=== PATIENT | female | born 1950 | race Caucasian/White ===

== ENCOUNTER 2022-09-16 00:05 | Inpatient (IN) | payer MEDICARE, OTHER ==
[~2022-09-16] VITALS: Ht 160 cm; Wt 108.6 kg
[2022-09-16] MEDS ORDERED: FLUT1DIS8 INH (00:30)
[2022-09-16] MEDS ORDERED: ASPI81CH PO (00:30)
[2022-09-16] MEDS ORDERED: ANORO ELLIPTA1 EACH INH (00:30)
[2022-09-16] MEDS ORDERED: BASAGLAR K100 UNIT/1 SC (00:31)
[2022-09-16] MEDS ORDERED: CEFU250T47 PO (00:32)
[2022-09-16] MEDS ORDERED: BUPRENORPHINE HC2 MG SL (00:32)
[2022-09-16] MEDS ORDERED: BISA5EC PO (00:33)
[2022-09-16] MEDS ORDERED: FISH OIL 1,2001 EAC4 PO (00:34)
[2022-09-16] MEDS ORDERED: FURO40 PO (00:34)
[2022-09-16] MEDS ORDERED: Isosorbide Mono30 MG PO (00:35)
[2022-09-16] MEDS ORDERED: CEPH500 PO (00:36)
[2022-09-16] MEDS ORDERED: LEVOTHYROXINE100 M10 PO (00:37)
[2022-09-16] MEDS ORDERED: LISI20 PO (00:38)
[2022-09-16] MEDS ORDERED: NITR.4SL SL (00:38)
[2022-09-16] MEDS ORDERED: NOVOLOG FL100 UNIT/2 SC (00:39)
[2022-09-16] MEDS ORDERED: PAXLOVID 150-11 EACH (00:39)
[2022-09-16 00:40] VITALS: BP 157/82
[2022-09-16] MEDS ORDERED: K-Dur10 MEQ PO (00:41)
[2022-09-16] MEDS ORDERED: TOPI25 PO (00:41)
[2022-09-16] MEDS ORDERED: ROSU10TA PO (00:41)
[2022-09-16] MEDS ORDERED: GLIP10 PO (00:42)
[2022-09-16 02:52] LABS: BASOPHILS ABSOLUTE AUTO 0.02 K/mm3 (0.00-0.23); BASOPHILS PERCENT AUTO 0 % (0-2); EOSINOPHILS PERCENT AUTO 0 % (0-6); Hematocrit 48.6 % (33.0-51.0); Hemoglobin 15.1 g/dL (11.5-16.0); IMMATURE GRAN ABSOLUTE AUTO 0.11 K/mm3 (0.00-0.10); IMMATURE GRAN PERCENT AUTO 1 % (0-1); LYMPHOCYTES ABSOLUTE AUTO 1.09 K/mm3 (0.84-5.20); LYMPHOCYTES PERCENT AUTO 8 % (21-46); MONOCYTES ABSOLUTE AUTO 0.47 K/mm3 (0.16-1.47); MONOCYTES PERCENT AUTO 3 % (4-13); Mean Corpuscular HGB 27.9 pg (26.0-34.0); Mean Corpuscular HGB Conc 31.1 g/dL (31.5-36.5); Mean Corpuscular Volume 90 fL (80-100); Mean Platelet Volume 10.4 fL (9.1-12.4); NEUTROPHILS ABSOLUTE AUTO 12.49 K/mm3 (1.96-9.15); NEUTROPHILS PERCENT AUTO 88 % (41-73); Platelet Count 157 K/mm3 (150-400); RDW Coefficient Variation 17.1 % (11.7-14.2); RDW Standard Deviation 56.9 fL (35.1-46.3); Red Blood Cell Count 5.42 M/mm3 (3.80-5.20); White Blood Cell Count 14.18 K/mm3 (4.00-11.30)
[2022-09-16 03:04] VITALS: BP 111/88
[2022-09-16 03:41] LABS: Albumin, Blood 2.8 g/dL (3.4-5.0); Albumin/Globulin Ratio 0.7 (0.8-1.8); Bilirubin, Total 0.6 mg/dL (0.1-1.0); Bun/Creatinine Ratio 30.7 (12.0-20.0); Calcium, Blood 8.6 mg/dL (8.5-10.1); Creatinine, Blood 1.01 mg/dL (0.40-1.00); Globulin, Blood 4.2 g/dL (2.2-4.0); Potassium, Blood 4.3 mmol/L (3.5-5.5)
[2022-09-16 04:08] LABS: Base Excess Venous 0.8 mmol/L; Bicarbonate Venous 23.7 mmol/L (24.0-30.0); PCO2 Venous 60.8 mmHg (38-42); pH Blood Venous 7.27 (7.34-7.37)
--- NOTE | 2022-09-16 05:03 | NUR ---
TRANSFER NOTE/SHIFT SUMMARY PATIENT ARRIVED TO UNIT VIA DIRECT ADMIT AT 0015. PATIENT SLID FROM GURNEY TO BED [facility] STAFF ASSIST. PATIENT NOTED TO BE ANXIOUS UPON ARRIVAL AND ATTEMPTING TO REMOVE CPAP MASK WITH RR NOTED TO BE 30-40 AND SPO2 84-86% WHILE TALKING. ORDER PLACED FOR ATIVAN IV. PATIENT NOTED TO HAVE DECREASED ANXIETY AFTER MEDICATION. ABLE TO ANSWER QUESTIONS. BP STABLE. SR ON MONITOR WITH HR 70-80'S. PATIENT PLACED ON CPAP PER RT. REPEAT VBG ORDERED. PT CHANGED TO BIPAP. MD NOTIFIED; NO NEW ORDERS. THIS RN REMOVED ESCAMILLA CATHETER THAT WAS PLACED AT [facility] PER PROTOCOL. VERBAL ORDER RECEIVED FOR NEW ESCAMILLA CATHETER. THIS RN ATTEMPTED TO PLACE NEW CATHETER, PATIENT REFUSED AND KICKED AT STAFF MEMBERS. PUREWICK PLACED FOR MORE ACCURATE I/O'S AT THIS TIME D/T REFUSAL. PATIENT LETHARGIC MOST OF THIS SHIFT SINCE ATIVAN WAS GIVEN. PATIENT ANSWERING QUESTIONS FOR THIS RN. MUMBLED SPEECH NOTED D/T MASK. PATIENT WITH SPO2 >92% ON BIPAP. RR 18-22 AT REST, INCREASING TO 30'S WITH EXERTION/ANXIETY/CONVERSATION. PATIENT VERBALIZED DESIRE TO BE A FULLL CODE TO THIS RN DESPITE COPY OF POLST ON FILE WHICH LISTS DNR/DNI. OTHER VITALS STABLE. REPOSITIONING Q2HRS. PATIENT RECEIVED BED BATH. POWDER APPLIED TO FOLDS D/T REDNESS. LEGS CLEANED AND ELEVATED. BARRIER CREAM APPLIED TO BUTTOCKS/THIGHS WHERE SKIN RED. ISOLATION PRECAUTIONS IN PLACE. BED IN LOWEST POSITION AND CALL LIGHT WITHIN REACH. THIS RN WILL CONTINUE TO MONITOR UNTIL SHIFT CHANGE AT 0700
[2022-09-16 08:43] VITALS: BP 149/119
[2022-09-16 09:44] LABS: Base Excess Venous 0.5 mmol/L; Bicarbonate Venous 24.1 mmol/L (24.0-30.0); PCO2 Venous 50.7 mmHg (38-42); pH Blood Venous 7.33 (7.34-7.37)
--- NOTE | 2022-09-16 10:03 | NUR ---
CARE ASSUMPTION / UPDATE PT A&O TO SELF & SEMI ORIENTED TO LOCATION, DATE & CURRENT SITUATION. PT REPORTING LOCATION "HOSPITAL IN [place]." PT REORIENTED TO HAVING BEEN TRANSFERRED FROM [facility] TO [place]. PT STATING DATE SEPTEMBER 09, 2022. PT REORIENTED TO TODAY'S DATE. PT STATING "I'M HERE BECAUSE I HAVE COVID." PT NOT UNDERSTANDING THE NEED FOR WEARING BIPAP MASK, FREQUENTLY REQUESTING TO REMOVE IT. PT INFORMED OF NEED TO CONTINUE WEARING MASK FOR TIME BEING. REPEAT VBG DRAWN. SPO2 > 92% ON BIPAP: 15/01, FIO2 75%. RR 20s-30s. MONITOR SHOWING SR, HR 80s. PUREWICK DRAINING YELLOW URINE. BLE RED, SWOLLEN & WEEPING, ELEVATED ON PILLOWS. PT 2 PERSON MAX ASSIST FOR REPOSITIONING.
[2022-09-16 11:41] VITALS: BP 132/87
[2022-09-16 16:11] VITALS: BP 153/77
[2022-09-16 16:15] LABS: Source, Urine Foley catheter
[2022-09-16 16:32] LABS: Bilirubin, Urine Neg (Neg); Blood, Urine 5+ (Neg); Glucose Qualitative, Urine Neg (Neg); Ketones, Urine Neg (Neg); Leukocyte Esterase, Urine Neg (Neg); Nitrite, Urine Neg (Neg); Protein, Urine 2+ (Neg); Specific Gravity, Urine 1.015 (1.003-1.022); Urobilinogen, Urine NORM (Normal)
[2022-09-16 17:01] LABS: Appearance, Urine Hazy (Clear); Color, Urine Yellow (P-Yellow)
[2022-09-16 17:03] LABS: Bacteria Many /hpf; Red Blood Cells, Urine TNTC /hpf (0-2); Squamous Epithelial Cells Rare /hpf (Few)
--- NOTE | 2022-09-16 18:07 | NUR ---
ASSUMED CARE OF PT AT 1400 RECEIVED REPORT FROM SYBIL MARTI. PT ON BIPAP SETTINGS 10/5 65% FIO2, SATS KEPT ABOVE 90%, HRR SR 80'S, SBP 150'S, AFEBRILE, RESPIRATIONS SHALLOW AT 22 PT IS ANXIOUS AND TREMOLOUS WHEN AWAKE 0.5MG ATIVAN WAS GIVEN AND ESCAMILLA CATHETER WAS PLACED PT NEEDING STRICT I&O'S PER DR PRESTON PT HAD 1000MLS OUT AFTER ESCAMILLA PLACEMENT UA SENT TO LAB, URINE DARK YELLOW RED IN COLOR. PT UNABLE TO TOLERATE BEING OFF OF THE MASK AT THIS TIME PT IS VERY COARSE AND CRACKLY, IV LASIX NOW Q6 HRS. ECHO WAS ORDERED WELL. PT HAS BEEN REPOSITIONED IN BED Q2HRS. PT IS RESTING AT THIS TIME, CALL LIGHTS IN REACH WILL REPORT TO ONCOMING SHIFT
[2022-09-16 20:35] VITALS: BP 156/71; BP 165/71
[2022-09-17] VITALS (44 sets, daily range): BP systolic 76–174; BP diastolic 43–86
[2022-09-17 05:03] LABS: Mean Corpuscular HGB 28.1 pg (26.0-34.0); Mean Corpuscular HGB Conc 30.1 g/dL (31.5-36.5); Mean Corpuscular Volume 93 fL (80-100); Mean Platelet Volume 10.3 fL (9.1-12.4); NRBC ABSOLUTE 0.02 K/mm3 (0.00-0.02); NRBC Auto 0.1 /100 WBC (0.0-0.2); Platelet Count 193 K/mm3 (150-400); RDW Standard Deviation 58.9 fL (35.1-46.3); Red Blood Cell Count 6.04 M/mm3 (3.80-5.20); White Blood Cell Count 23.87 K/mm3 (4.00-11.30)
[2022-09-17 05:04] LABS: Hematocrit 56.4 % (33.0-51.0)
--- NOTE | 2022-09-17 05:09 | NUR ---
SHIFT SUMMARY PT OPENS EYES TO PAINFUL STIMULI, MUMBLES WORDS BUT DOES NOT FORM SENTENCES OR ANSWER QUESTIONS. BP ELEVATED WITH SBP 140-150's, SINUS 80's. PT REQUIRED INCREASE IN BIPAP SETTINGS TO 16/8 85% FiO2 TO MAINTAIN SpO2> 90%. ORAL CARE PROVIDED WITH SUCTION. ESCAMILLA CATHETER IN PLACE, PATENT, DRAINIG TO GRAVITY. Q2 TURNS PROVIDED. NO OTHER EVENTS, WILL REPORT TO ONCOMING RN.
[2022-09-17 05:47] LABS: BAND PERCENT MAN 12 % (0-8); BASOPHILS PERCENT MAN 0 % (0-2); EOSINOPHILS PERCENT MAN 0 % (0-6); LYMPHOCYTES ABSOLUTE MAN 0.71 K/mm3 (0.84-5.20); LYMPHOCYTES PERCENT MAN 3 % (21-46); MONOCYTES ABSOLUTE MAN 1.43 K/mm3 (0.16-1.47); MONOCYTES PERCENT MAN 6 % (4-13); NEUTROPHILS ABSOLUTE MAN 21.72 K/mm3 (1.96-9.15); SEG NEUTROPHILS PERCENT MAN 79 % (41-73); TOTAL CELLS COUNTED 100
[2022-09-17 05:58] LABS: Albumin, Blood 2.7 g/dL (3.4-5.0); Albumin/Globulin Ratio 0.6 (0.8-1.8); Bilirubin, Total 0.7 mg/dL (0.1-1.0); Bun/Creatinine Ratio 44.6 (12.0-20.0); Calcium, Blood 8.9 mg/dL (8.5-10.1); Creatinine, Blood 0.72 mg/dL (0.40-1.00); Globulin, Blood 4.8 g/dL (2.2-4.0); Phosphorus, Blood 4.5 mg/dL (2.5-4.9); Potassium, Blood 4.7 mmol/L (3.5-5.5); Total Protein, Blood 7.5 g/dL (6.4-8.2)
--- NOTE | 2022-09-17 08:39 | NUR ---
AM NOTES: PT REMAIN LETHARGIC AND SOMNOLENT ON BIPAP CAN ONLY RESPOND TO PAINFUL STIMULI OR WHEN TOUCHED OR MOVED, MUMBLES AND UNABLE TO KEEP EYES OPEN. BIPAP SETTINGS 16/8 85% FIO2 STILL UNABLE TO TOLERATE BEING OFF OF IT, REMAINS NPO. SBP 100-130'S, RR 30'S, HRR SR 80'S, AFEBRILE. PT REPOSITIONED Q2HRS, ORAL CARE PROVIDED, LEGS RED AND SWOLLEN WAS ELEVATED ON PILLOWS, ESCAMILLA CATHETER DRAINING YELLOW URINE VIA GRAVITY, ON DIURETICS. BREATHING TX PER RT. WILL CONTINUE TO MONITOR
[2022-09-17 12:47] LABS: Base Excess Venous 7.5 mmol/L; Bicarbonate Venous 28.2 mmol/L (24.0-30.0); PCO2 Venous 73.4 mmHg (38-42); PO2 Venous 177 mmHg (38-42)
[2022-09-17 12:48] LABS: pH Blood Venous 7.28 (7.34-7.37)
[2022-09-17 13:13] LABS: PCO2 Arterial 78.8 mmHg (35-45); PO2 Arterial 79.8 mmHg (80-100); pH Blood Arterial 7.26 (7.35-7.45)
--- NOTE | 2022-09-17 14:38 | NUR ---
PT TRANSFERRED TO ICU REPORT GIVEN TO RAHUL MARTI. ORDER TO TRANSFER PT FROM DR DAWN PER ABG/VBG RESULTS AND WORSENING RESPIRATORY STATUS AND ALSO PER RT'S RECOMMENDATION. ALL BELONGINGS SENT WITH THE PT, PROVIDER MADE AWARE, CALLED [facility]YSTAL CAREGIVER WAS GIVEN AN UPDATE REGARDING PT ADN ALSO MADE AWARE OF THE TRANSFER.
--- NOTE | 2022-09-17 14:46 | NUR ---
PT TRANSFERED FROM PCU TO ICU 4. ON BIPAP 18/8 FIO2 85%. PT IS TRYING TO TALK BUT UNABLE TO UNDERSTAND. TREMULOUS AND PULLING AT BIPAP MASK. RESP RATE IN THE 50'S. BP ELEVATED BUT UNSURE IF IT IS ACCURATE D/T PT CONSTANTLY MOVING ARMS AND TREMORS. CALLED DR. DAWN TO NOTIFY HIM OF ARRIVAL TO ICU. PRECEDEX GTT ORDERED.
[2022-09-17 17:54] LABS: PO2 Arterial 67.7 mmHg (80-100); pH Blood Arterial 7.27 (7.35-7.45)
[2022-09-17 17:55] LABS: PCO2 Arterial 82.1 mmHg (35-45)
--- NOTE | 2022-09-17 18:48 | NUR ---
SUMMARY PT ON BIPAP. UNABLE TO UNDERSTAND ANY CONVERSATION. PT WAS CONSTANTLY PULLING AT LINES AND BIPAP. PRECEDEX STARTED AND IS NOW RESTING QUIETLY ON BIPAP. REPEAT ABG DONE AND CRITICAL VALUES CALLED TO DR. DAWN. DR. DAWN WILL BE IN TO SEE PT THIS EVENING. GOOD URINE OUTPUT AFTER LASIX. CAREGIVER AAMIR HAS BEEN UPDATED ON STATUS AND A SON FROM [place] IS ON HIS WAY UP TO SEE PT.
--- NOTE | 2022-09-17 19:45 | NUR ---
ASSUMED CARE OF PT AT 1915 BEDSIDE REPORT RECEIVED FROM FIGUEROA KAY. PT IS CURRENTLY ON PRECEDEX AND 0.4 AND NOT RESPONDING TO VERBAL STIMULI. ON BIPAP, RECENT ABG'S WORSENING DESPITE INCREASED PRESSURE SETTINGS ON BIPAP. DR. DAWN NOTIFIED. PT HAS BEEN NPO SINCE ADMIT TO ICU DUE TO SOMNOLENCE AND CONFUSION. ESCAMILLA PATENT AND DRAINING CLEAR YELLOW URINE. BLE REDENNED WITH THICKENED SKIN. 2+ PITTING EDEMA NOTED TO BILAT LOWER EXTREMETIES. PIV IN RIGHT AND LEFT WRIST, LEFT WRIST WITH GOOD BLOOD RETURN, BOTH FLUSH WELL. NO FAMILY AT BEDSIDE. PT HAS POLST STATING DNR BUT VERBALLY TOLD EMS SHE WISHES TO BE A FULL CODE. RN TO CONTINUE TO MONITOR
--- NOTE | 2022-09-17 21:47 | NUR ---
DR. DAWN TO BEDSIDE TO EVALUATE PT DECISION MADE BY MD TO INTUBATE PT. THIS RN, RT AND ARSON AND BOMB INVESTIGATOR AT BEDSIDE DURING INTUBATION. 4 MG VERSED AND 40 MG PROPOFOL GIVEN IMMEDIATELY PRIOR TO INTUBATION, PT INTUBATED WITH 7.5 TUBE, TOLERATED WELL, PT MAINTAINED O2 SAT > 92%. IMMEDIATELY FOLLOWING INTUBATION, PT BP LOW REQUIRING 100MCG PHENYLEPHRINE IV. BP RESOLVED QUICKLY WITH NO FURTHER INTERVENTION. RIGHT SC QUAD LUMEN CATHETHER PLACED BY DR. DAWN. OGT PLACED BY THIS RN. CXR DONE, DR. DAWN CONFIRMS CORRECT PLACEMENT OF ETT, CENTRAL LINE AND OGT. OGT PLACED TO LIS. BILAT WRIST RESTRAINTS PLACED TO PROTECT LINES/TUBES. DR. DAWN PROVIDED UPDATE TO CAREGIVER VIA PHONE. RN TO CONTINUE TO MONITOR
[2022-09-17 22:31] LABS: PCO2 Arterial 53.6 mmHg (35-45); PO2 Arterial 157 mmHg (80-100); pH Blood Arterial 7.44 (7.35-7.45)
[2022-09-18] VITALS (84 sets, daily range): BP systolic 102–164; BP diastolic 53–113
--- NOTE | 2022-09-18 05:12 | NUR ---
END OF SHIFT SUMMARY NEURO: SEDATED. MOVES HANDS AND HEAD WHEN STIMULATED. DOES NOT OPEN EYES SPONTANEOUSLY. CARDIAC: SR, BP 104/57 MAP 72 RESP: VENT AC/VC 20/400/10/70%. LUNGS COARSE, TIGHT. MODERATE AMOUNT OF MARTIN SECRETIONS AFTER INTUBATION, MINIMAL SECRETIONS FOR THE REMAINDER OF THE SHIFT. ORAL CARE COMPLETED ORDERED. GI: OGT TO LIS UNTIL 0400 THEN CLAMPED. GREEN OUTPUT IN TUBING, NOT MEASURABLE. : ESCAMILLA TO GRAVITY, PATENT AND DRAINING YELLOW URINE. 600ML OUT. SKIN: MULTIPLE AREAS OF EXCORIATION AND REDNESS UNDER SKIN FOLDS. CLEANSED AND KEPT DRY ABLE. PICTURES IN CHART. IV: PIV X2, SL. RSC QUAD LUMEN CATHETER. CONTINUOUS CVP READING 8-10. NO FAMILY AT BEDSIDE. SON REPORTEDLY ARRIVING FROM [place] TODAY.
[2022-09-18 05:23] LABS: BASOPHILS ABSOLUTE AUTO 0.04 K/mm3 (0.00-0.23); BASOPHILS PERCENT AUTO 0 % (0-2); EOSINOPHILS PERCENT AUTO 0 % (0-6); Hematocrit 49.8 % (33.0-51.0); Hemoglobin 15.3 g/dL (11.5-16.0); IMMATURE GRAN ABSOLUTE AUTO 0.14 K/mm3 (0.00-0.10); IMMATURE GRAN PERCENT AUTO 1 % (0-1); LYMPHOCYTES ABSOLUTE AUTO 0.72 K/mm3 (0.84-5.20); LYMPHOCYTES PERCENT AUTO 6 % (21-46); MONOCYTES ABSOLUTE AUTO 0.58 K/mm3 (0.16-1.47); MONOCYTES PERCENT AUTO 5 % (4-13); Mean Corpuscular HGB Conc 30.7 g/dL (31.5-36.5); Mean Corpuscular Volume 91 fL (80-100); Mean Platelet Volume 10.3 fL (9.1-12.4); NEUTROPHILS ABSOLUTE AUTO 10.81 K/mm3 (1.96-9.15); NEUTROPHILS PERCENT AUTO 88 % (41-73); NRBC ABSOLUTE 0.02 K/mm3 (0.00-0.02); NRBC Auto 0.2 /100 WBC (0.0-0.2); Platelet Count 165 K/mm3 (150-400); RDW Coefficient Variation 16.6 % (11.7-14.2); RDW Standard Deviation 55.7 fL (35.1-46.3); Red Blood Cell Count 5.46 M/mm3 (3.80-5.20); White Blood Cell Count 12.29 K/mm3 (4.00-11.30)
[2022-09-18 05:45] LABS: Albumin, Blood 2.1 g/dL (3.4-5.0); Albumin/Globulin Ratio 0.5 (0.8-1.8); Bilirubin, Total 0.8 mg/dL (0.1-1.0); Bun/Creatinine Ratio 68.7 (12.0-20.0); Calcium, Blood 8.5 mg/dL (8.5-10.1); Creatinine, Blood 0.66 mg/dL (0.40-1.00); Globulin, Blood 4.1 g/dL (2.2-4.0); Potassium, Blood 4.2 mmol/L (3.5-5.5); Total Protein, Blood 6.2 g/dL (6.4-8.2)
--- NOTE | 2022-09-18 08:38 | NUR ---
PT'S CARE ASSUMED AT 0700, ON VENTILATOR AC/VC 20/400/10/70% FIO2. PT IS NOT RESPONDING TO VERBAL STIMULI, PROPOFOL DECREASED TO 25MCG/KG. ANTIBIOTIC HUNG WITH NS TKO TO CENTRAL LINE. PIV X 2 ASSESSED, RIGHT WRIST REMOVED FOR LEAKING LEFT WRIST FLUSHED AND INTACT. ABDOMEN SOFT, OGT IN PLACE TO LIS WITH GREEN RETURN. ORAL CARE COMPLETED, ESCAMILLA CARE COMPLETED, PT LIFTED FOR POSITION CHANGE, PT REACTED TO POSITION CHANGE WITH SOME REACHING AND COUGHING. LEGS ARE RED AND FLAKEY, EVIDENCE OF DECREASED SWELLING BY THE WRINKLES THAT ARE PRESENT IN FEET AND CALVES. PULSES ARE PALPABLE ON DORSUM BILAT.
[2022-09-18 11:56] LABS: Vancomycin, Trough 19.9 ug/mL (5.0-10.0)
--- NOTE | 2022-09-18 12:53 | NUR ---
ON PROPOFOL 20MCG/KG PATIENT IS MORE AGITATED AND RESTLESS. SHE ISN'T UNDER- STANDING VERBAL CUES AND REDIRECTION. HER PROPOFOL IS BACK TO 25MCG/KG. HER SON DID PHONE, HE IS "STUCK" AT THE TRAIN STATION IN [facility] AND WILL NOT ARRIVE UNTIL TOMORROW. CAREGIVER CALLED THIS AM AND STATED THAT THE PATIENT LIVES WITH HER IN A MOBILE HOME AND HAS BEEN ONLY MAKING ABOUT 12 STEPS FROM LIVING ROOM TO KITCHEN AND RETURNING FOR THE LAST SEVERAL WEEKS. INFORMATION GIVEN TO MARKETING INTELLIGENCE MANAGER.
--- NOTE | 2022-09-18 13:41 | NUR ---
ECHO BEING PERFORMED, PT TRANSITIONED BACK TO LEFT SIDE DOWN FOR TEST. TUBE FEEDING OF VHP @ 35ML/HR INITIATED PER ORDERS. PROPOFOL @ 25MCG/KG WITH GOOD LIGHT SEDATION.
--- NOTE | 2022-09-18 19:24 | NUR ---
DIEUDONNE REMAINED ON THE VENTILATOR WITH NO CHANGES. FAMILY HAS BEEN UPDATED T/O THE DAY. SHE TOLERATES BEING AT 25MCG/KG OF PROPOFOL THE BEST, WITH LIGHT SEDATION. PT HAS BEEN ROTATED Q2HR WITH LIFT, TUBE FEEDINGS BEGAN WITH VITAL HIGH PROTEIN @ 35ML/HR. ESCAMILLA REMAINS IN PLACE WITH ANTHONY RETURN. ETT SUCTION RETURNED MARTIN/RED TINGED X1.
--- NOTE | 2022-09-18 22:04 | NUR ---
ASSUMED CARE OF PT AT 1915 BEDSIDE REPORT RECIEVED FROM FIGUEROA QUIROZ. PT IS SEDATED AND ON A VENTILATOR. SR, BP SLIGHTLY ELEVATED, PT HAS A HISTORY OF HYPERTENSION. OGT WITH TF INFUSING AT GOAL. ESCAMILLA PATENT AND DRAINING YELLOW URINE. SKIN IS UNCHANGED. PHOTOS IN CHART ARE CURRENT. RIGHT SC QUAD LUMEN CATH INFUSING. NO FAMILY AT BEDSIDE. SON EXPECTED TO ARRIVE TOMORROW. RN TO CONTINUE TO MONITOR
[2022-09-19] VITALS (63 sets, daily range): BP systolic 126–174; BP diastolic 50–100
[2022-09-19 05:56] LABS: BASOPHILS ABSOLUTE AUTO 0.04 K/mm3 (0.00-0.23); BASOPHILS PERCENT AUTO 1 % (0-2); EOSINOPHILS PERCENT AUTO 0 % (0-6); Hematocrit 44.3 % (33.0-51.0); Hemoglobin 13.6 g/dL (11.5-16.0); IMMATURE GRAN ABSOLUTE AUTO 0.31 K/mm3 (0.00-0.10); IMMATURE GRAN PERCENT AUTO 4 % (0-1); LYMPHOCYTES ABSOLUTE AUTO 0.37 K/mm3 (0.84-5.20); LYMPHOCYTES PERCENT AUTO 5 % (21-46); MONOCYTES ABSOLUTE AUTO 0.56 K/mm3 (0.16-1.47); MONOCYTES PERCENT AUTO 8 % (4-13); Mean Corpuscular HGB 27.8 pg (26.0-34.0); Mean Corpuscular HGB Conc 30.7 g/dL (31.5-36.5); Mean Corpuscular Volume 90 fL (80-100); Mean Platelet Volume 10.2 fL (9.1-12.4); NEUTROPHILS PERCENT AUTO 82 % (41-73); Platelet Count 161 K/mm3 (150-400); RDW Coefficient Variation 16.7 % (11.7-14.2); RDW Standard Deviation 55.8 fL (35.1-46.3); White Blood Cell Count 7.28 K/mm3 (4.00-11.30)
[2022-09-19 06:48] LABS: Albumin, Blood 1.8 g/dL (3.4-5.0); Anion Gap 4 mmol/L (6-16); Blood Urea Nitrogen 45 mg/dL (8-24); Bun/Creatinine Ratio 86.5 (12.0-20.0); CO2, Blood 34 mmol/L (21-32); Calcium, Blood 7.8 mg/dL (8.5-10.1); Chloride, Blood 110 mmol/L (98-108); Creatinine, Blood 0.52 mg/dL (0.40-1.00); Glomerular Filtration Rate 97 (60-); Glucose, Blood 403 mg/dL (70-99); Magnesium, Blood 2.1 mg/dL (1.6-2.4); Phosphorus, Blood 1.3 mg/dL (2.5-4.9); Potassium, Blood 3.6 mmol/L (3.5-5.5); Sodium, Blood 148 mmol/L (136-145)
--- NOTE | 2022-09-19 06:50 | NUR ---
END OF SHIFT SUMMARY SEDATED, MOVES LEFT HAND TO FACE WHEN UNRESTRAINED AND STIMULATED. TITRATED PROPOFOL ACCORDINGLY. SR, BP ELEVATED WHEN TURNING, RETURNS TO 130'S WHEN RESTING. LUNGS COARSE THROUGHOUT, DIMISHED BASES, MINIMAL SUCTIONED FROM ETT, VENT AC.CV 20/400/10/50%. OGT INFUSING AT GOAL, TOLERATED WELL. ESCAMILLA WITH 800ML ANTHONY UO. SKIN UNCHANGED. BATHED AND CREAM APPLIED TO AREAS OF EXCORIATION. CENTRAL LINE TO RIGHT SC, INFUSING. NO FAMILY AT BEDSIDE.
--- NOTE | 2022-09-19 08:10 | NUR ---
ASSUMED CARE: REPORT RECEIVED FROM ANTHONY Dominguez RN. ASSUMED CARE OF THIS PT AT APPROX 0700. ON ASSESSMENT, THE PT IS SEDATED W/ PROPOFOL & VENTILATED. SHE IS OVERALL RESTING QUIETLY, BECOMES AGITATED W/ CARE MEASURES AT TIMES, PULLING AGAINST BILAT SOFT WRIST RESTRAINTS. LS COARSE, DIM IN BASES. VENT SETTINGS: AC/VC 20/400/10/50% W/ O2 SATS > 92%. MONITOR SHOWS SB-SR W/ HR 50-60s, BP STABLE. OGT IN PLACE W/ TUBE FEEDS INFUSING AT GOAL RATE OF 35 ML/HR W/ 30 ML H2O FLUSH Q4H, NO S/SX INTOLERANCE NOTED. ESCAMILLA PATENT/ DRAINING YELLOW URINE. SKIN CONDITION OVERALL FRAGILE, NUMEROUS AREAS OF DRY SCALING SKIN & ECCHYMOSIS. FOLDS OF ABD, BREASTS & BUTTOCKS W/ OPEN AREAS NOTED, CLEANSED & DRIED. Q2H REPOSITIONING TO MAINTAIN SKIN INTEGRITY. WILL CONTINUE TO MONITOR & UPDATE NEEDED.
--- NOTE | 2022-09-19 10:30 | NUR ---
DR QUEZADA: DURING ROUNDS THIS AM, IT IS DISCUSSED THAT THE PT's CBGs ARE CONTINUING TO TREND HIGH. Q6H CORRECTION SCALE COVERAGE INCREASED TO HIGH. KPHOS ORDERED TO CORRECT LOW PHOS & BORDERLINE POTASSIUM LEVELS. KHOA, INSURANCE CLAIM APPROVER, SUSPECTS REFEEDING SYNDROME & HAS ORDERED FOLLOW-UP LABS. SODIUM ALSO TRENDING HIGH ON AM LABS & FREE WATER FLUSH W/ TUBE FEEDINGS HAS BEEN INCREASED TO 120 ML Q4H. NO OTHER CHANGES AT THIS TIME.
[2022-09-19 16:23] LABS: Vancomycin, Trough 8.4 ug/mL (5.0-10.0)
--- NOTE | 2022-09-19 17:51 | NUR ---
SHIFT SUMMARY: NO ACUTE CHANGES SINCE PRIOR UPDATES. THE PT REMAINS SEDATED W/ PROPOFOL & VENTILATED. SHE CONTINUES TO MOVE EXTREMITIES & WITHDRAW FROM NOXIOUS STIMULI. NO PURPOSEFUL MOVEMENT OR FOLLOWING DIRECTIONS NOTED. LS COARSE, DIM IN BASES. VENT SETTINGS: AC/VC 20/400/8/40% W/ O2 SATS > 92%. PRODUCTIVE COUGH W/ THICK BLOOD TINGED SPUTUM SUCTIONED THROUGH ETT. MONITOR SHOWS SB-SR W/ HR 40-60s, BP STABLE. OGT IN PLACE W/ TUBE FEEDINGS INFUSING AT GOAL RATE, NO S/SX INTOLERANCE NOTED, NO BM THIS SHIFT. ESCAMILLA PATENT/ DRAINING YELLOW URINE. SKIN CONDITION OVERALL FRAGILE, DRY & FLAKING IN SOME AREAS. SCATTERED ECCHYMOSIS NOTED T/O & FOLDS OF ABD/ BREASTS HAVE REDENNED, BLEEDING AREAS. THIS RN HAS CONTACTED DR QUEZADA FOR PT's PERSISTANTLY ELEVATED GLUCOSE LEVELS DESPITE INCREASING TO HIGH CORRECTION SCALE COVERAGE Q6H. CBG CHECKS & HCS COVERAGE INCREASED TO Q4H & ORDERS FOR NPH ALSO PLACED. WILL CONTINUE TO MONITOR & UPDATE NEEDED.
[2022-09-19 21:27] LABS: Glucose, Blood 547 mg/dL (70-99)
--- NOTE | 2022-09-19 23:04 | NUR ---
ASSUMED CARE OF PT AT 1915 BEDSIDE REPORT RECEIVED FROM FIGUEROA CHAMBERS. PT APPEARS TO BE COMFORTABLY. SEDATED WITH PROPOFOL. ON VENT AC/VC 20/400/8/40%. LUNGS COARSE. ETT SECRETIONS PINK/MARTIN, THICK, SMALL AMOUNT. TITRATED O2 UP TO 50% AFTER SUSTAINED DESATURATION TO 88% DESPITE SUCTIONING AND REPOSITIONING. O2 SATS IMPROVED TO >94%. OGT WITH VITAL HP INFUSING AT 35ML/HR (GOAL). PT TOLERATING WELL. FEEDING SET CHANGED. ESCAMILLA PATENT AND DRAINING ANTHONY URINE. SKIN REMAINS UNCHANGED WITH MULTIPLE AREAS OF EXCORIATION AND SHEARING. MEPILEX TO COCCYX AND LEFT ELBOW. STERI STRIPS PRESENT UNDER LEFT ELBOW MEPILEX. REPOSITIONED EVERY 2 HOURS TO MAINTAIN SKIN INTEGRITY. CENTRAL LINE TO RIGHT SC. DRESSING C/D/I. ALL PORTS FLUSHED/2 LINES INFUSING. CVP 10-13. SON ABLE TO VISIT THIS SHIFT AFTER TRAVELING FROM [place]. BRIEFLY UPDATE ON POC AND EDUCATED ON CONTACT PRECAUTIONS. HE WILL BE STAYING AT THE [address] IN [place]. RN TO CONTINUE TO MONITOR.
[2022-09-20] VITALS (45 sets, daily range): BP systolic 123–180; BP diastolic 55–127
[2022-09-20 04:33] LABS: Hematocrit 47.6 % (33.0-51.0); Hemoglobin 14.9 g/dL (11.5-16.0); Mean Corpuscular HGB 28.2 pg (26.0-34.0); Mean Corpuscular HGB Conc 31.3 g/dL (31.5-36.5); Mean Corpuscular Volume 90 fL (80-100); Mean Platelet Volume 10.5 fL (9.1-12.4); Platelet Count 165 K/mm3 (150-400); RDW Coefficient Variation 16.5 % (11.7-14.2); RDW Standard Deviation 55.2 fL (35.1-46.3); Red Blood Cell Count 5.28 M/mm3 (3.80-5.20); White Blood Cell Count 5.34 K/mm3 (4.00-11.30)
[2022-09-20 04:51] LABS: Bun/Creatinine Ratio 100.2 (12.0-20.0); Calcium, Blood 8.1 mg/dL (8.5-10.1); Creatinine, Blood 0.43 mg/dL (0.40-1.00); Magnesium, Blood 2.4 mg/dL (1.6-2.4); Phosphorus, Blood 1.8 mg/dL (2.5-4.9)
[2022-09-20 04:55] LABS: BAND PERCENT MAN 1 % (0-8); BASOPHILS PERCENT MAN 0 % (0-2); EOSINOPHILS PERCENT MAN 0 % (0-6); LYMPHOCYTES ABSOLUTE MAN 0.37 K/mm3 (0.84-5.20); LYMPHOCYTES PERCENT MAN 7 % (21-46); METAMYELOCYTE ABSOLUTE MAN 0.05 K/mm3 (0.00-0.00); METAMYELOCYTE PERCENT MAN 1 % (0-0); MONOCYTES ABSOLUTE MAN 0.37 K/mm3 (0.16-1.47); MONOCYTES PERCENT MAN 7 % (4-13); MYELOCYTE ABSOLUTE MAN 0.05 K/mm3 (0.00-0.00); MYELOCYTE PERCENT MAN 1 % (0-0); NEUTROPHILS ABSOLUTE MAN 4.48 K/mm3 (1.96-9.15); SEG NEUTROPHILS PERCENT MAN 83 % (41-73); TOTAL CELLS COUNTED 100
--- NOTE | 2022-09-20 05:59 | NUR ---
SHIFT SUMMARY PT REMAINS SEDATED, LOCALIZES PAIN. SB 45-55, BP STABLE WITH SBP 120-135. LUNGS COARSE, OCCAS COUGH, ETT SECRETIONS MARTIN/PINK/RED WITH SUCTIONING. OGT WITH VITAL HP INFUSING AT 35 ML/HR (GOAL). ESCAMILLA TO GRAVITY, 1 LITER UO. SKIN UNCHANGED. BED BATH COMPLETED, MEPILEX TO COCCYX AND LEFT ELBOW. CENTRAL LINE RIGHT SC, INFUSING, CVP TRANSDUCING 8-13. BLOOD GLUCOSE MONITORED EVERY 4 HOURS. CONSISTENTLY DECREASING AFTER LONG ACTING AND HIGH S/S COVERAGE. RN TO CONTINUE TO MONITOR.
--- NOTE | 2022-09-20 18:28 | NUR ---
Shift summary. Assumed care at 0700. Report received from barbara MARTI. Pt sedated and ventilated via ETT. Vent settings: AC/VC 16/400/8/45%, Fi02 titrated up to 50% during shift. Pt sats drop into high 80s when turning or laying bed flat, pt takes several minutes to recver sats into low 90s on current settings. OG tube in place, TF at goal rate, 35 ml/hr. R/subclavian central line in place, dressing changed today. Propofol infusing at 20 mcg/kg/min initally, titrated down to 15 mcg/kg/min at 1430. NS TKO. Johansen catheter in place, good output, see I&O. No acute events this shift, see assessment/chart for further details. Will continue to monitor and report off to barbara MARTI.
[2022-09-21] VITALS (76 sets, daily range): BP systolic 91–228; BP diastolic 44–104
[2022-09-21 04:12] LABS: PO2 Arterial 70.4 mmHg (80-100); pH Blood Arterial 7.44 (7.35-7.45)
[2022-09-21 04:12] LABS: Hematocrit 52.5 % (33.0-51.0); Hemoglobin 16.6 g/dL (11.5-16.0); Mean Corpuscular HGB 27.6 pg (26.0-34.0); Mean Corpuscular HGB Conc 31.6 g/dL (31.5-36.5); Mean Corpuscular Volume 87 fL (80-100); Mean Platelet Volume 10.3 fL (9.1-12.4); Platelet Count 189 K/mm3 (150-400); RDW Standard Deviation 52.7 fL (35.1-46.3); Red Blood Cell Count 6.01 M/mm3 (3.80-5.20); White Blood Cell Count 8.85 K/mm3 (4.00-11.30)
[2022-09-21 04:32] LABS: Albumin, Blood 2.1 g/dL (3.4-5.0); Anion Gap 0 mmol/L (6-16); Blood Urea Nitrogen 43 mg/dL (8-24); Bun/Creatinine Ratio 92.3 (12.0-20.0); CO2, Blood 37 mmol/L (21-32); Calcium, Blood 8.2 mg/dL (8.5-10.1); Chloride, Blood 108 mmol/L (98-108); Creatinine, Blood 0.47 mg/dL (0.40-1.00); Glomerular Filtration Rate 100 (60-); Glucose, Blood 371 mg/dL (70-99); Phosphorus, Blood 1.9 mg/dL (2.5-4.9); Potassium, Blood 4.4 mmol/L (3.5-5.5); Sodium, Blood 145 mmol/L (136-145)
--- NOTE | 2022-09-21 05:45 | NUR ---
SHIFT SUMMARY: Pt stable overnight. Vent settings stayed the same. Sats have been around 90-92%. Small amount of bloody sputum noted from ETT. Hypertensive at times with BPs up to 190s. Order received for hydralazine Q6 for SBP>160. Given one dose, SBP still in 160s. Propofol increased to 25mcg/kg/min overnight due to ventilator asynchrony and some restlessness. She is not following commands. CHG bath done and gown/ linens changed. CBGs still in the 300s.
[2022-09-21 06:17] LABS: BAND PERCENT MAN 4 % (0-8); BASOPHILS PERCENT MAN 0 % (0-2); EOSINOPHILS PERCENT MAN 0 % (0-6); LYMPHOCYTES ABSOLUTE MAN 0.26 K/mm3 (0.84-5.20); LYMPHOCYTES PERCENT MAN 3 % (21-46); METAMYELOCYTE ABSOLUTE MAN 0.08 K/mm3 (0.00-0.00); METAMYELOCYTE PERCENT MAN 1 % (0-0); MONOCYTES ABSOLUTE MAN 0.44 K/mm3 (0.16-1.47); MONOCYTES PERCENT MAN 5 % (4-13); MYELOCYTE ABSOLUTE MAN 0.17 K/mm3 (0.00-0.00); MYELOCYTE PERCENT MAN 2 % (0-0); NEUTROPHILS ABSOLUTE MAN 7.87 K/mm3 (1.96-9.15); SEG NEUTROPHILS PERCENT MAN 85 % (41-73); TOTAL CELLS COUNTED 100
--- NOTE | 2022-09-21 08:34 | NUR ---
AM NOTE.... ASSUMED CARE OF PT AT 0700 PT IS INTUBATED AND SEDATED WITH PROPOFOL AT 25MCG/KG. RAAS SCORE OF -2. VENT SETTINGS ARE AC/VC:20/400/8/60 WITH O2 SATS >95%. L/S SCATTERED WHEEZES AND COARSE T/O DIM IN THE BASES. SHE IS IN SR IN THE 90'S. BP STABLE WITH MAPS >65. CVP 9-10. 1+ EDEMA NOTED TO HER BLE AND BUE. OG TUBE IS RUNNING TUBE FEEDS PER ORDER AT 35MLS/HR. BT PRESENT AND HYPOACTIVE, ABD SOFT TO PALPATION. BOWEL CARE STARTED PER ORDERS D/T NO BM SINCE 09/15. PT'S ESCAMILLA IS PATENT AND DRAINING TO GRAVITY. CALL LIGHT IN REACH WILL CONTINUE TO MONITOR.
[2022-09-21 15:46] LABS: Hematocrit 48.1 % (33.0-51.0); Hemoglobin 15.4 g/dL (11.5-16.0); Mean Corpuscular HGB 28.1 pg (26.0-34.0); Mean Corpuscular Volume 88 fL (80-100); Platelet Count 173 K/mm3 (150-400); RDW Coefficient Variation 16.9 % (11.7-14.2); RDW Standard Deviation 53.6 fL (35.1-46.3); Red Blood Cell Count 5.48 M/mm3 (3.80-5.20); White Blood Cell Count 8.39 K/mm3 (4.00-11.30)
[2022-09-21 16:11] LABS: Magnesium, Blood 2.3 mg/dL (1.6-2.4)
[2022-09-21 16:14] LABS: Bun/Creatinine Ratio 82.5 (12.0-20.0); Calcium, Blood 7.6 mg/dL (8.5-10.1); Creatinine, Blood 0.58 mg/dL (0.40-1.00); Potassium, Blood 4.2 mmol/L (3.5-5.5); Thyroid Stimulating Hormone 0.979 uIU/mL (0.360-4.800)
[2022-09-21 16:19] LABS: BAND PERCENT MAN 7 % (0-8); BASOPHILS PERCENT MAN 0 % (0-2); EOSINOPHILS PERCENT MAN 0 % (0-6); LYMPHOCYTES ABSOLUTE MAN 0.08 K/mm3 (0.84-5.20); LYMPHOCYTES PERCENT MAN 1 % (21-46); METAMYELOCYTE ABSOLUTE MAN 0.08 K/mm3 (0.00-0.00); METAMYELOCYTE PERCENT MAN 1 % (0-0); MONOCYTES ABSOLUTE MAN 0.33 K/mm3 (0.16-1.47); MONOCYTES PERCENT MAN 4 % (4-13); MYELOCYTE ABSOLUTE MAN 0.08 K/mm3 (0.00-0.00); MYELOCYTE PERCENT MAN 1 % (0-0); SEG NEUTROPHILS PERCENT MAN 86 % (41-73); TOTAL CELLS COUNTED 100
--- NOTE | 2022-09-21 17:43 | NUR ---
SHIFT SUMMARY.... PT HAD AN EPISODE FOR A FEW HOURS STARTING AT APROX 1300 WHERE HER HEART RATE DROPPED FROM THE 100'S-110'S TO THE 60'S AND HER BP DROPPED DOWN FROM SBPs IN THE 220'S-180'S TO THE 90'S-110'S WITH MAPS IN THE 50'S TO LOW 60'S. AWARE, LABS WERE DRAWN, EKG WAS DONE. THEN AT APROX 1600 THE PT'S HR INCREASED TO THE 80'S-110'S AND SHE BECAME HYPERTENSIVE AGAIN. DR. QUEZADA NOTIFIED. NO OTHER CHANGES NOTED THIS SHIFT. PT'S AND SON WERE AT THE BEDSIDE AND UPDATED ON THE PT'S CONDITION AND PLAN OF CARE. PT'S VENT SETTINGS ARE AC/VC: 20/400/10/50% WITH O2 SATS >95%. PT HAS A LARGE AMOUNT OF THICK RED SECRETIONS SUCTIONED VIA THE ET TUBE THIS SHIFT. WILL CONTINUE TO MONITOR UNTIL REPORT IS GIVEN TO ONCOMING RN.
--- NOTE | 2022-09-21 19:45 | NUR ---
ASSUMED CARE OF PT AT 1900. REPORT RECEIVED AT ROOM. PT PRESENTS IN BED. INTUBATED. AC 20, Tv 400, PEEP 10.0, FIO2 50 PERCENT. PROPOFOL ON AT 25 MCG'S/KG/MIN. PT SOMEWHAT RESTLESS. DID INCREASE PROPOFOL TO 30 MCG'S/KG/MIN. WILL MONITOR BP'S WITH MAP SECONDARY TO EARLIER BP LEVELS LOWERING. WILL REVIEW CHART AND PLAN OF CARE FOR THIS PT.
[2022-09-22] VITALS (54 sets, daily range): BP systolic 88–184; BP diastolic 54–89
--- NOTE | 2022-09-22 | NUR ---
FULL BEDBATH DONE. PT TOLERATES PASSIVELY. HAVE NEEDED TO INCREASE PROPOFOL TO 40 MCG'S/KG/MIN SECONDARY TO INTOLERANCE OF VENT WITH BREATH STACKING.
[2022-09-22 04:34] LABS: BASOPHILS ABSOLUTE AUTO 0.05 K/mm3 (0.00-0.23); BASOPHILS PERCENT AUTO 1 % (0-2); EOSINOPHILS PERCENT AUTO 0 % (0-6); Hematocrit 47.2 % (33.0-51.0); Hemoglobin 14.8 g/dL (11.5-16.0); IMMATURE GRAN ABSOLUTE AUTO 0.55 K/mm3 (0.00-0.10); IMMATURE GRAN PERCENT AUTO 7 % (0-1); LYMPHOCYTES PERCENT AUTO 5 % (21-46); MONOCYTES ABSOLUTE AUTO 0.47 K/mm3 (0.16-1.47); MONOCYTES PERCENT AUTO 6 % (4-13); Mean Corpuscular HGB 27.5 pg (26.0-34.0); Mean Corpuscular HGB Conc 31.4 g/dL (31.5-36.5); Mean Corpuscular Volume 88 fL (80-100); Mean Platelet Volume 10.9 fL (9.1-12.4); NEUTROPHILS ABSOLUTE AUTO 6.27 K/mm3 (1.96-9.15); NEUTROPHILS PERCENT AUTO 81 % (41-73); Platelet Count 161 K/mm3 (150-400); RDW Coefficient Variation 16.5 % (11.7-14.2); Red Blood Cell Count 5.39 M/mm3 (3.80-5.20); White Blood Cell Count 7.74 K/mm3 (4.00-11.30)
[2022-09-22 04:56] LABS: Albumin, Blood 1.8 g/dL (3.4-5.0); Anion Gap 5 mmol/L (6-16); Blood Urea Nitrogen 55 mg/dL (8-24); Bun/Creatinine Ratio 102.6 (12.0-20.0); CO2, Blood 34 mmol/L (21-32); Calcium, Blood 7.5 mg/dL (8.5-10.1); Chloride, Blood 104 mmol/L (98-108); Creatinine, Blood 0.54 mg/dL (0.40-1.00); Glomerular Filtration Rate 97 (60-); Glucose, Blood 406 mg/dL (70-99); Phosphorus, Blood 3.7 mg/dL (2.5-4.9); Potassium, Blood 4.2 mmol/L (3.5-5.5); Sodium, Blood 143 mmol/L (136-145)
[2022-09-22 04:58] LABS: BAND PERCENT MAN 4 % (0-8); BASOPHILS PERCENT MAN 0 % (0-2); EOSINOPHILS PERCENT MAN 0 % (0-6); LYMPHOCYTES ABSOLUTE MAN 0.07 K/mm3 (0.84-5.20); LYMPHOCYTES PERCENT MAN 1 % (21-46); METAMYELOCYTE PERCENT MAN 4 % (0-0); MONOCYTES PERCENT MAN 4 % (4-13); MYELOCYTE ABSOLUTE MAN 0.07 K/mm3 (0.00-0.00); MYELOCYTE PERCENT MAN 1 % (0-0); NEUTROPHILS ABSOLUTE MAN 6.96 K/mm3 (1.96-9.15); SEG NEUTROPHILS PERCENT MAN 86 % (41-73); TOTAL CELLS COUNTED 100
--- NOTE | 2022-09-22 06:45 | NUR ---
SEDATION VACATION DONE THIS MORNING. PT DOES AWAKEN SOME, COUGHS AND TOLERANCE OF VENT BECAME FAIR TO POOR. PT DOES NOT FOLLOW COMMANDS AT THE TIME. WILL CONTINUE TO MONITOR PT, AND WILL REPORT OFF TO ONCOMING RN.
--- NOTE | 2022-09-22 09:44 | NUR ---
ASSUMED CARE REPORT FROM LISA MARTI AT 0700. PT INTUBATED AND SEDATED. VENT SETTINGS AC/VC 20/400/10/45%. LUNGS CLEAR, DIM IN BASES. SCANT SECRETIONS FROM ETT. PROPOFOL GTT FOR SEDATION. RASS -4. TITRATING DOWN. GRIMACES c CARE. DOES NOT FOLLOW COMMANDS OR WITHDRAW EXT TO PAIN. COUGH/GAG/SWALLOW REFLEX. OVERBREATHING VENT. SR c PVC ON MONITOR, RATE 80'S. BP STABLE. 1+ EDEMA TO ALL EXT. REDNESS AND SCALING TO BLE. SKIN MOIST IN FOLDS, NYSTATIN APPLIED. ABD OBESE, SOFT, NON TENDER. TUBE FEEDS AT GOAL, 35 ML c 200ML FLUSHES q4 HR. ESCAMILLA PATENT, CLEAR YELLOW URINE, DIURESING, STRICT I&O. CVC TO RIGHT SUBCLAVIAN. WILL CONTINUE TO MONITOR.
--- NOTE | 2022-09-22 17:23 | NUR ---
SHIFT SUMMARY PT REMAINS INTUBATED AND SEDATED. VENT SETTINGS UNCHANGED AC/VC 20/400/10/45%. LUNGS DIM IN BASES. SCANT PINK SECRETIONS FROM ETT. PROPOFOL GTT FOR SEDATION, ATTEMPTED SEDATION VACATION, PROPOFOL PLACED ON STANDBY. PT WITHDRAWS EXT TO PAINFUL STIMULI. DID NOT FOLLOW COMMANDS. RESTARTED PROPOFOL D/T HTN AND VENT NON COMPLIANCE. RASS -4 AT THIS TIME. MEDICATED c FENTANYL PRN. SR, RATE 80-90'S c PVCS, BP STABLE. TUBE FEEDS AT GOAL. ESCAMILLA PATENT, DIURESED, 2300 ML CLEAR YELLOW URINE OUT. CVC TO R SUBCLAV. WILL CONTINUE TO MONITOR UNTIL REPORT TO ONCOMING NURSE.
--- NOTE | 2022-09-22 20:00 | NUR ---
ASSUMED CARE OF PT AT 1915. REPORT RECEIVED AT ROOM. PT PRESENTS IN BED. INTUBATED. AC 20, Tv 400, PEEP 10.0, FIO2 45 PERCENT. PT MAINTAINS > 90 PERCENT SATURATION WITH THIS. PT HYPERTENSIVE AND HAS REDDISH/FLUSHED APPEARANCE TO FACE. COMPLEXION LIGHTENS POST TURN TO RIGHT. BLOOD PRESSURES BEGIN TO IMPROVE. TUBE FEEDING AT GOAL. PROPOFOL INCREASED FROM 20 MCG'S TO 25 MCG'S/KG/MIN TO IMPROVE VENT TOLERANCE. WILL REVIEW CHART AND PLAN OF CARE FOR THIS PT.
[2022-09-23] VITALS (46 sets, daily range): BP systolic 89–180; BP diastolic 52–90
--- NOTE | 2022-09-23 01:11 | NUR ---
PT'S BLOOD PRESSURES INCREASE WELL HEART RATE WHEN SHE IS TURNED TOWARDS HER LEFT. HER FACE ALSO BECOMES VERY FLUSHED WITH THIS POSITION. IMPROVES WITH TURN BACK TO RIGHT. PROPOFOL AT 25 MCG'S/KG/MIN. HAVE SUCTIONED PT WITH RETURN OF RED/RUST COLORED SECRETIONS. PT DIURESING WELL AFTER RECEIVING LASIX DOSE.
[2022-09-23 03:49] LABS: BASOPHILS ABSOLUTE AUTO 0.05 K/mm3 (0.00-0.23); BASOPHILS PERCENT AUTO 1 % (0-2); EOSINOPHILS PERCENT AUTO 0 % (0-6); Hematocrit 48.1 % (33.0-51.0); Hemoglobin 15.1 g/dL (11.5-16.0); IMMATURE GRAN ABSOLUTE AUTO 0.53 K/mm3 (0.00-0.10); IMMATURE GRAN PERCENT AUTO 5 % (0-1); LYMPHOCYTES ABSOLUTE AUTO 0.42 K/mm3 (0.84-5.20); LYMPHOCYTES PERCENT AUTO 4 % (21-46); MONOCYTES PERCENT AUTO 7 % (4-13); Mean Corpuscular HGB 27.7 pg (26.0-34.0); Mean Corpuscular HGB Conc 31.4 g/dL (31.5-36.5); Mean Corpuscular Volume 88 fL (80-100); Mean Platelet Volume 11.5 fL (9.1-12.4); NEUTROPHILS ABSOLUTE AUTO 9.12 K/mm3 (1.96-9.15); NEUTROPHILS PERCENT AUTO 84 % (41-73); Platelet Count 147 K/mm3 (150-400); RDW Coefficient Variation 16.4 % (11.7-14.2); RDW Standard Deviation 52.6 fL (35.1-46.3); Red Blood Cell Count 5.46 M/mm3 (3.80-5.20); White Blood Cell Count 10.82 K/mm3 (4.00-11.30)
[2022-09-23 04:36] LABS: BASOPHILS PERCENT MAN 0 % (0-2); EOSINOPHILS PERCENT MAN 1 % (0-6); LYMPHOCYTES ABSOLUTE MAN 0.43 K/mm3 (0.84-5.20); LYMPHOCYTES PERCENT MAN 4 % (21-46); METAMYELOCYTE PERCENT MAN 1 % (0-0); MONOCYTES ABSOLUTE MAN 0.32 K/mm3 (0.16-1.47); MONOCYTES PERCENT MAN 3 % (4-13); NEUTROPHILS ABSOLUTE MAN 9.84 K/mm3 (1.96-9.15); SEG NEUTROPHILS PERCENT MAN 91 % (41-73); TOTAL CELLS COUNTED 100
--- NOTE | 2022-09-23 05:40 | NUR ---
PT HAS REMAINED ON 25 MCG'S/KG/MIN PROPOFOL THROUGHOUT THE NIGHT WITH GOOD VENT TOLERANCE. HAS REMAINED FOR THE MOST PART IN SINUS RHYTHM WITH PVC'S. HAS HAD PERIODS IN TRIGEMENY. SHORT 15 BEAT RUN OF SVT. PT ASYMPTOMATIC WITH THIS. HAVE SUCTIONED PT PER ETT WITH RETURN OF SMALL AMOUNT OF RUST COLORED SECRETIONS. FULL BEDBATH DONE WITH LINEN CHANGE. NOTED: YEAST RASH IMPROVING SOME TO FOLDS AND BELLA AREA. LOWER EXTREMITIES WITH REDNESS, AND FLAKING. WILL CONTINUE TO MONITOR PT, AND WILL REPORT OFF TO ONCOMING RN.
[2022-09-23 07:29] LABS: Albumin, Blood 1.9 g/dL (3.4-5.0); Anion Gap 4 mmol/L (6-16); Blood Urea Nitrogen 47 mg/dL (8-24); CO2, Blood 33 mmol/L (21-32); Calcium, Blood 7.8 mg/dL (8.5-10.1); Chloride, Blood 102 mmol/L (98-108); Creatinine, Blood 0.53 mg/dL (0.40-1.00); Glomerular Filtration Rate 97 (60-); Glucose, Blood 284 mg/dL (70-99); Phosphorus, Blood 3.5 mg/dL (2.5-4.9); Potassium, Blood 4.1 mmol/L (3.5-5.5); Sodium, Blood 139 mmol/L (136-145)
--- NOTE | 2022-09-23 08:36 | NUR ---
ASSUMED CARE REPORT FROM LISA MARTI AT 0700. PT INTUBATED AND SEDATED. VENT SETTINGS AC/VC 20/400/10/45%. LUNGS CLEAR, DIM IN BASES. SCANT THIN PINK SECRETIONS FROM ETT. PROPOFOL INFUSING, TITRATED OFF, PT GRIMACES, FACE RED, HR INCREASED. DOES NOT FOLLOW COMMANDS, DOES NOT WITHDRAW FROM PAINFUL STIMULI. RESTARTED PROPOFOL. COUGH/GAG/SWALLOW REFLEX PRESENT. SR c PVCS, RATE 80-90'S. BP STABLE. TUBE FEEDS AT GOAL, TOLERATING WELL. ABD OBESE, SOFT, NON TENDER. BT X 4. ESCAMILLA PATENT, DRAINING CLEAR YELLOW URINE TO GRAVITY, DIURESING, STRICT I&O. CVC TO RIGHT SUBCLAVIAN. DRESSING C/D/I. WILL CONTINUE TO MONITOR.
--- NOTE | 2022-09-23 17:36 | NUR ---
SHIFT SUMMARY NO ACUTE CHANGES THIS SHIFT. VENT SETTINGS AC/VC 20/400/8/45%, PEEP DECREASED. LUNGS CLEAR, DIM IN BASES. SCANT CLEAR SECRETIONS FROM ETT. PROPOFOL GTT FOR SEDATION, PRN FENTANYL FOR PAIN. DURING SEDATION VACATION, PT c INCREASED HR, BP, TACHYPNEA, GRIMACING. DOES NOT FOLLOW COMMANDS OR WITHDRAW TO PAIN. RESTARTED PROPOFOL AT 10 MCG/KG/MIN. COMPLIANCE c VENT. SR c FREQUENT PVC'S, RATE 80-90'S. BP STABLE. TUBE FEEDS AT GOAL, NO BM, MIRALAX GIVEN IN ADDITION TO BOWEL CARE. ESCAMILLA PATENT, DIURESED, STRICT I&O. , SON, AND SISTER UPDATED THIS SHIFT. WILL CONTINUE TO MONITOR UNTIL REPORT TO ONCOMING NURSE.
[2022-09-24] VITALS (38 sets, daily range): BP systolic 90–179; BP diastolic 47–102
--- NOTE | 2022-09-24 02:18 | NUR ---
ASSUMED CARE ASSUMED CARE AT 1900. PT INTUBATED AND SEDATED. AC/VC 20/400/8/45%. PROPOFOL GTT INFUSING. SEE FLOWSHEET FOR TITRATIONS. PT OPENS EYES SPONTANEOUSLY. DOES NOT TRACK. WILL WITHDRAW TO NOXIOUS STIMULI AT TIMES, OTHER TIMES PT WILL NOT RESPOND. GRIMACES WITH CARE. VSS. SR W/ PVCS, RATE 80-90'S. OGT W/ TF AT GOAL. ESCAMILLA PATENT AND DRAINING TO GRAVITY.
[2022-09-24 04:30] LABS: BASOPHILS ABSOLUTE AUTO 0.05 K/mm3 (0.00-0.23); BASOPHILS PERCENT AUTO 0 % (0-2); EOSINOPHILS PERCENT AUTO 0 % (0-6); Hemoglobin 16.3 g/dL (11.5-16.0); IMMATURE GRAN ABSOLUTE AUTO 0.43 K/mm3 (0.00-0.10); IMMATURE GRAN PERCENT AUTO 3 % (0-1); LYMPHOCYTES ABSOLUTE AUTO 0.78 K/mm3 (0.84-5.20); LYMPHOCYTES PERCENT AUTO 5 % (21-46); MONOCYTES PERCENT AUTO 7 % (4-13); Mean Corpuscular Volume 88 fL (80-100); Mean Platelet Volume 12.2 fL (9.1-12.4); NEUTROPHILS ABSOLUTE AUTO 12.56 K/mm3 (1.96-9.15); NEUTROPHILS PERCENT AUTO 85 % (41-73); Platelet Count 142 K/mm3 (150-400); RDW Coefficient Variation 15.9 % (11.7-14.2); RDW Standard Deviation 51.7 fL (35.1-46.3); Red Blood Cell Count 5.83 M/mm3 (3.80-5.20); White Blood Cell Count 14.82 K/mm3 (4.00-11.30)
[2022-09-24 05:02] LABS: Albumin, Blood 2.2 g/dL (3.4-5.0); Anion Gap 2 mmol/L (6-16); Blood Urea Nitrogen 51 mg/dL (8-24); Bun/Creatinine Ratio 114.1 (12.0-20.0); CO2, Blood 38 mmol/L (21-32); Calcium, Blood 8.2 mg/dL (8.5-10.1); Chloride, Blood 99 mmol/L (98-108); Creatinine, Blood 0.45 mg/dL (0.40-1.00); Glomerular Filtration Rate 101 (60-); Glucose, Blood 255 mg/dL (70-99); Phosphorus, Blood 2.8 mg/dL (2.5-4.9); Potassium, Blood 3.9 mmol/L (3.5-5.5); Sodium, Blood 139 mmol/L (136-145)
--- NOTE | 2022-09-24 06:19 | NUR ---
SHIFT SUMMARY NO ACUTE EVENTS T/O NIGHT. PT REMAINS INTUBATED AND SEDATED. AC/VC 20/400/8/35%. VSS. PROPOFOL GTT INFUSING. CHG BATH AND LINEN CHANGE DONE. MEDICATED WITH FENTANYL TWICE T/O SHIFT. OGT W/ TF AT GOAL. ONE LIQUID BM THIS SHIFT. WILL REPORT OFF TO ONCOMING RN.
--- NOTE | 2022-09-24 07:00 | NUR ---
ASSUMPTION OF CARE PT IS RECEIVING PROPOFOL 10MCG/KG/MIN AND NS TKO. SHE REMAINS INTUBATED WITH VENT SETTINGS AC/VC 20/400/8/35%. PT OPENS EYES SPONTANEOUSLY, WITHDRAWS FROM NOXIOUS STIMULI. HR 80S, BP STABLE AT THIS TIME. TUBE FEEDING INFUSING AT GOAL RATE. ESCAMILLA PATENT AND DRAINING TO GRAVITY. SEE SHIFT ASSESSMENT.
--- NOTE | 2022-09-24 17:26 | NUR ---
SHIFT SUMMARY PT HAS BEEN ON SEDATION VACATION SINCE 1429. PT OCCASIONALLY OPENS EYES SPONTANEOUSLY. SHE DOES NOT TRACK MOVEMENTS OR FOLLOW ANY COMMANDS. COUGH/GAG INTACT. BILAT UPPER EXTREMITIES MADE MINIMAL MOVEMENT THIS AFTERNOON BUT NOT ABLE TO SQUEEZE HANDS. HEAD AND ALL EXTREMITITES WITHDRAW FROM NOXIOUS STIMULI. SHE REMAINS INTUBATED WITH VENT SETTINGS AC/VC 20/400/8/35%. MINIMAL ETT SECRETIONS THIS SHIFT. LUNGS ARE CLEAR, DIMINISHED IN BASES. NSR ON MONITOR, OCCASIONAL RUNS OF BIGEMINY. HR 70S-90S. SBP 110S-150S. TUBE FEEDING INFUSING AT GOAL RATE WITH 200ML WATER FLUSHES Q4. 1 BM THIS SHIFT. ESCAMILLA PATENT AND DRAINING TO GRAVITY.
--- NOTE | 2022-09-24 21:54 | NUR ---
ASSUMED CARE ASSUMED CARE AT 1900. PT INTUBATED AND OFF SEDATION. AV/VC 20/400/8/35%. RR 20-28. PT OPENS EYES SPONTANEOUSLY BUT DOES NOT TRACK. MOVES HEAD AND GRIMACES W/ ORAL CARE. MOVES ALL EXTREMITIES TO NOXIOUS STIMULI. NO PURPOSEFUL MOVEMENT NOTED. VSS. SR/ST RATE 80-100'S. TEMP 99.4F. PT MILADYS AND HOT TO THE TOUCH. HR AND BP INCREASE WITH STIMULATION. OGT W/ TF AT GOAL. ESCAMILLA PATENT AND DRAINING TO GRAVITY.
[2022-09-25] VITALS (60 sets, daily range): BP systolic 88–186; BP diastolic 53–96
[2022-09-25 03:38] LABS: BASOPHILS ABSOLUTE AUTO 0.03 K/mm3 (0.00-0.23); BASOPHILS PERCENT AUTO 0 % (0-2); EOSINOPHILS PERCENT AUTO 0 % (0-6); Hemoglobin 15.4 g/dL (11.5-16.0); IMMATURE GRAN ABSOLUTE AUTO 0.21 K/mm3 (0.00-0.10); IMMATURE GRAN PERCENT AUTO 2 % (0-1); LYMPHOCYTES PERCENT AUTO 4 % (21-46); MONOCYTES ABSOLUTE AUTO 0.81 K/mm3 (0.16-1.47); MONOCYTES PERCENT AUTO 6 % (4-13); Mean Corpuscular HGB 27.4 pg (26.0-34.0); Mean Corpuscular HGB Conc 31.4 g/dL (31.5-36.5); Mean Corpuscular Volume 87 fL (80-100); Mean Platelet Volume 11.7 fL (9.1-12.4); NEUTROPHILS ABSOLUTE AUTO 11.91 K/mm3 (1.96-9.15); NEUTROPHILS PERCENT AUTO 89 % (41-73); Platelet Count 114 K/mm3 (150-400); RDW Coefficient Variation 15.8 % (11.7-14.2); RDW Standard Deviation 50.7 fL (35.1-46.3); Red Blood Cell Count 5.62 M/mm3 (3.80-5.20); White Blood Cell Count 13.46 K/mm3 (4.00-11.30)
[2022-09-25 03:58] LABS: Anion Gap 4 mmol/L (6-16); Blood Urea Nitrogen 45 mg/dL (8-24); Bun/Creatinine Ratio 112.5 (12.0-20.0); CO2, Blood 40 mmol/L (21-32); Calcium, Blood 8.2 mg/dL (8.5-10.1); Chloride, Blood 98 mmol/L (98-108); Glomerular Filtration Rate 104 (60-); Glucose, Blood 230 mg/dL (70-99); Phosphorus, Blood 2.9 mg/dL (2.5-4.9); Potassium, Blood 3.9 mmol/L (3.5-5.5); Sodium, Blood 142 mmol/L (136-145)
--- NOTE | 2022-09-25 05:34 | NUR ---
SHIFT SUMMARY NO ACUTE EVENTS T/O NIGHT. APPROX 2300, BP INCREASED SBP 170'S, HR 100'S, PT GRIMACING, AND VENT ALARMING HIGH CIRCUT PRESSURE MULTIPLE TIMES. PRN FENTANYL GIVEN. BP/HR DECREASED, AND PT TOLERATING VENT. APPROX 0130, SAME EVENTS BEGAN AGAIN. PRECEDEX GTT RESTARTED. SEE FLOWSHEET. PT BEGAN TO SETTLE AGAIN. THEN PT BECAME HYPOTENSIVE APPROX 2 HOURS LATER. SBP 80'S. PRECEDEX GTT STOPPED. AFTER Q2 TURN PT SBP 140'S. OVERALL VSS. OGT W/ TF AT GOAL. ESCAMILLA PATENT AND DRAINING TO GRAVITY. WILL REPORT OFF TO ONCOMING RN.
--- NOTE | 2022-09-25 08:16 | NUR ---
AM NOTE.... ASSUMED CARE OF PT AT 0700. PT IS INTUBATED, WITH 7.5 ETT 25 AT THE TEETH. VENT SETTINGS ARE AC/VC: 20/400/8/30% WITH O2 SATS >90% L/S COARSE ON THE RIGHT CLEAR ON THE LEFT AND DIM IN THE BASES. PT HAS NOT BEEN ON SEDATION SINCE APROX 0200, SHE WILL OPEN HER EYES TO VERBAL STIMULI, WITHDRAW FROM PAINFUL STIMULI BUT NOT FOLLOW COMMANDS. SHE IS IN SR IN THE 80'S-90'S BP IS STABLE WITH MAPS >65. 2+ EDEMA NOTED TO HER BLE. TUBE FEED IS RUNNING PER ORDERS. ESCAMILLA IS PATENT AND DRAINING TO GRAVITY. WILL CONTINUE TO MONITOR.
--- NOTE | 2022-09-25 18:07 | NUR ---
SHIFT SUMMARY... NO ACUTE NEGATIVE CHANGES NOTED THIS SHIFT. PT CONTINUES TO STAY OFF OF ANY SEDATION. SHE WAS MEDICATED ONCE WITH 75MCG IV FENTANYL WHILE A POWERGLIDE WAS BEING PLACED. SHE WAS MEDICATED WITH HYDRALAZINE FOR SBPs >170. PT WAS PLACED BACK IN SOFT WRIST RESTAINTS D/T STRONG ATTEMPTS TO PULL THE ET TUBE OUT. PT'S OTHER VS HAVE BEEN STABLE. SHE HAS BEEN ON SPONTAINIOUS PS: 10/8 AND 30% SINCE APROX 1000 AND HAS TOLERATED THIS WELL. HER TUBE FEEDS WERE INCREASED PER ORDERS TO 50MSL/HR AT 1400, PT IS TOLERATING THIS WELL. WILL CONTINUE TO MONITOR UNTIL REPORT IS GIVEN TO ONCOMING RN.
[2022-09-26] VITALS (22 sets, daily range): BP systolic 119–183; BP diastolic 47–89
[2022-09-26 03:45] LABS: BASOPHILS ABSOLUTE AUTO 0.03 K/mm3 (0.00-0.23); BASOPHILS PERCENT AUTO 0 % (0-2); EOSINOPHILS PERCENT AUTO 0 % (0-6); Hematocrit 48.7 % (33.0-51.0); Hemoglobin 15.8 g/dL (11.5-16.0); IMMATURE GRAN ABSOLUTE AUTO 0.25 K/mm3 (0.00-0.10); IMMATURE GRAN PERCENT AUTO 2 % (0-1); LYMPHOCYTES ABSOLUTE AUTO 0.54 K/mm3 (0.84-5.20); LYMPHOCYTES PERCENT AUTO 3 % (21-46); MONOCYTES ABSOLUTE AUTO 1.19 K/mm3 (0.16-1.47); MONOCYTES PERCENT AUTO 7 % (4-13); Mean Corpuscular HGB 27.8 pg (26.0-34.0); Mean Corpuscular HGB Conc 32.4 g/dL (31.5-36.5); Mean Corpuscular Volume 86 fL (80-100); NEUTROPHILS ABSOLUTE AUTO 14.03 K/mm3 (1.96-9.15); NEUTROPHILS PERCENT AUTO 87 % (41-73); Platelet Count 115 K/mm3 (150-400); RDW Coefficient Variation 15.9 % (11.7-14.2); RDW Standard Deviation 49.9 fL (35.1-46.3); Red Blood Cell Count 5.68 M/mm3 (3.80-5.20); White Blood Cell Count 16.04 K/mm3 (4.00-11.30)
[2022-09-26 03:49] LABS: Mean Platelet Volume 12.7 fL (9.1-12.4)
[2022-09-26 04:14] LABS: Albumin, Blood 2.1 g/dL (3.4-5.0); Anion Gap 3 mmol/L (6-16); Blood Urea Nitrogen 39 mg/dL (8-24); Bun/Creatinine Ratio 104.3 (12.0-20.0); CO2, Blood 36 mmol/L (21-32); Calcium, Blood 8.4 mg/dL (8.5-10.1); Chloride, Blood 98 mmol/L (98-108); Creatinine, Blood 0.37 mg/dL (0.40-1.00); Glomerular Filtration Rate 106 (60-); Glucose, Blood 241 mg/dL (70-99); Phosphorus, Blood 2.3 mg/dL (2.5-4.9); Potassium, Blood 3.8 mmol/L (3.5-5.5); Sodium, Blood 137 mmol/L (136-145)
--- NOTE | 2022-09-26 06:53 | NUR ---
SHIFT SUMMARY NO ACUTE EVENTS T/O NIGHT. PT INTUBATED AND OFF SEDATION. PT ON SPONT 01/07 30% T/O NIGHT. RR 18-30. PT ABLE TO MAKE EYE CONTACT AT TIMES BUT DOES NOT FOLLOW DIRECTIONS. MOVES ALL EXTREMITIES. LUNG SOUNDS COARSE. PINK THICK/CLEAR THIN SECRETIONS. VSS, HTN NOTED AT TIMES. ONE DOSE OF PRN HTN MEDICATION GIVEN. ONE DOSE OF PRN PAIN MEDICATION GIVEN. OGT W/ TF AT GOAL. ESCAMILLA PATENT AND DRAINING TO GRAVITY. WILL REPORT OFF TO ONCOMING RN.
--- NOTE | 2022-09-26 09:21 | NUR ---
AM NOTE... ASSUMED CARE OF PT AT 0700 PT IS INTUBATED. SHE HAS BEEN OFF SEDATION APROX 24HRS AT THIS TIME. VENT SETTINGS ARE PS:10/8 AND 30% WITH O2 SATS >90% L/S ARE CORASE T/O THIS IS INCREASED FROM YESTERDAY. ALSO NOTED THIS ASSESSMENT IS AN INCREASE OF VERY THICK COPIOUS MARTIN/PINK SECRETIONS SUCTIONED VIA THE ET TUBE. SHE IS IN ST IN THE LOW 100'S WITH PACs AND PVCs NOTED. BP IS STABLE WITH MAPS >65. SHE HAS TRACE EDEMA NOTED TO HER BLE, 2+ NOTED TO HER UPPER THIGHS AND HIPS. TUBE FEEDS ARE RUNNING PER ORDERS AT 50MLS/HR WITH H2O FLUSHES 200MLS Q4HRS. BT PRESENT AND HYPOACTIVE. ESCAMILLA IS PATENT AND DRAINING TO GRAVITY. AT THE TIME OF THIS ASSESSMENT THE PT WAS LAYING IN BED WITH HER EYES OPEN, SHE LOOKED AT THIS RN WHEN HER NAME WAS SAID, SHE PULLED HER FEET AWAY WHEN THEY WERE TOUCHED/TICKELED. SHE WILL MAKE EYE CONTACT AND TRACK/FOLLOW BUT NOT FOLLOW ANY COMMANDS WHEN ASKED. PLAN IS TO GET THE PT UP IN THE RECLINER CHAIR THIS SHIFT.
--- NOTE | 2022-09-26 17:44 | NUR ---
SHIFT SUMMARY.... NO ACUTE NEGATIVE CHANGES NOTED THIS SHIFT. PT WAS UP IN THE CHAIR SINCE 11AM AND HAS STAYED UP MOST OF THIS SHIFT. PT CONTINUES TO BE OFF SEDATION WITH IV FENTANYL PUSHES TWICE THIS SHIFT. VENT SETTINGS ARE PRESSURE SUPPORT OF 10/8 AND 35%. SHE CONTINUES TO HAVE COPIOUS AMOUNTS OF THICK MARTIN/PINK SPUTUM SUCTIONED VIA THE ET TUBE. SHE CONTINUES TO OPEN HER EYES AND MAKE EYE CONTACT AND TRACK/FOLLOW MOVEMENT. SHE WILL MOVE HER ARMS IN WAYS THAT WILL MOVE THE PILLOWS AWAY FROM HER ARMS BUT DOES NOT FOLLOW ANY DIRECTIONS OR COMMANDS. SHE PULLS HER HEAD AWAY AND CLOSES HER MOUTH DURING ORAL CARE BITING THE ET TUBE. PT'S ESCAMILLA IS PATENT AND DRAINING TO GRAVITY. CALL LIGHT IN REACH WILL CONTINUE TO MONITOR UNTIL REPORT IS GIVEN TO ONCOMING RN.
--- NOTE | 2022-09-26 20:00 | NUR ---
ASSUMED CARE OF PT AT 1915 BEDSIDE REPORT RECIEVED FROM FIGUEROA WERNER. PT APPEARS TO BE RESTING, MOVING ALL EXTREMETIES, DOES NOT FOLLOW COMMANDS. HAS BEEN OFF SEDATION FOR 2-3 DAYS. V/S STABLE. MEDICATED FOR PAIN X1 WITH FENTANYL ON PREVIOUS SHIFT. TF INFUSING AT GOAL, TOLERATING WELL. ESCAMILLA PATENT AND DRAINING ANTHONY URINE. PG TO RIGHT UPPER ARM, SLUGGISH FLUSH, NO BLOOD RETURN. PIV TO RIGHT WRIST/FOREARM, WITHDRAWS BLOOD, FLUSHES WELL, POSITIONAL AT TIMES. NS AT TKO INFUSING + IVPB. NO FAMILY AT BEDSIDE. SISTER CALLED FOR UPDATE, ALL QUESTIONS ANSWERED. SPONT VENT SETTINGS, PT TOLERATING WELL. RN TO CONTINUE TO MONITOR
[2022-09-27] VITALS (24 sets, daily range): BP systolic 89–171; BP diastolic 47–91
[2022-09-27 03:59] LABS: BASOPHILS ABSOLUTE AUTO 0.03 K/mm3 (0.00-0.23); BASOPHILS PERCENT AUTO 0 % (0-2); EOSINOPHILS ABSOLUTE AUTO 0.04 K/mm3 (0.00-0.68); EOSINOPHILS PERCENT AUTO 0 % (0-6); Hematocrit 45.5 % (33.0-51.0); Hemoglobin 14.7 g/dL (11.5-16.0); IMMATURE GRAN ABSOLUTE AUTO 0.18 K/mm3 (0.00-0.10); IMMATURE GRAN PERCENT AUTO 1 % (0-1); LYMPHOCYTES ABSOLUTE AUTO 0.82 K/mm3 (0.84-5.20); LYMPHOCYTES PERCENT AUTO 4 % (21-46); MONOCYTES ABSOLUTE AUTO 0.91 K/mm3 (0.16-1.47); MONOCYTES PERCENT AUTO 4 % (4-13); Mean Corpuscular HGB Conc 32.3 g/dL (31.5-36.5); Mean Corpuscular Volume 87 fL (80-100); Mean Platelet Volume 12.7 fL (9.1-12.4); NEUTROPHILS ABSOLUTE AUTO 19.28 K/mm3 (1.96-9.15); NEUTROPHILS PERCENT AUTO 91 % (41-73); Platelet Count 119 K/mm3 (150-400); RDW Standard Deviation 50.4 fL (35.1-46.3); Red Blood Cell Count 5.25 M/mm3 (3.80-5.20); White Blood Cell Count 21.26 K/mm3 (4.00-11.30)
[2022-09-27 04:44] LABS: Albumin, Blood 1.9 g/dL (3.4-5.0); Anion Gap 3 mmol/L (6-16); Blood Urea Nitrogen 32 mg/dL (8-24); Bun/Creatinine Ratio 81.8 (12.0-20.0); CO2, Blood 35 mmol/L (21-32); Calcium, Blood 8.4 mg/dL (8.5-10.1); Chloride, Blood 100 mmol/L (98-108); Creatinine, Blood 0.39 mg/dL (0.40-1.00); Glomerular Filtration Rate 104 (60-); Glucose, Blood 174 mg/dL (70-99); Phosphorus, Blood 1.9 mg/dL (2.5-4.9); Potassium, Blood 3.6 mmol/L (3.5-5.5); Sodium, Blood 138 mmol/L (136-145)
--- NOTE | 2022-09-27 05:11 | NUR ---
QNOC SHIFT SUMMARY NO CHANGES TO ASSESSMENT THIS SHIFT. CONTINUES TO OPEN EYES TO VOICE AND TRACK WITH EYES, MOVES ALL EXTREMETIES, DOES NOT FOLLOW COMMANDS. SR 80-90'S, BP ELEVATED SLIGHTLY WHEN STIMULATED. REMAINS ON A VENTILATOR SPONT SETTINGS WITH PS OF 10, PEEP 8, FI02 35%, TOLERATING WELL. MODERATE AMOUNT OF THICK SECRETIONS, PT IS VERY RESISTANT TO ORAL CARE. OGT WITH VITAL HP INFUSING AT 50ML/HR (GOAL) WITH 200 ML H20 FLUSHES EVERY 4 HOURS. ESCAMILLA PATENT AND DRAINING ANTHONY URINE WITH 900 ML OUT THIS SHIFT. SKIN UNCHANGED, SCATTERED BRUISING, OPEN AREAS UNDER SKIN FOLDS. CHG BATH COMPLETED THIS SHIFT, CLEANSED UNDER FOLDS AND POWDER APPLIED. PG TO RIGHT UPPER ARM NOT FLUSHING WELL, NOT WITHDRAWING BLOOD, LEFT IN PLACE, DID NOT INFUSE MEDICATION THROUGH IT, TO BE REEVALUATED NEXT SHIFT FOR POSSIBLE REPOSITIONING. PIV TO LEFT FOREARM FLUSHES WELL. NO FAMILY AT BEDSIDE. RN TO CONTINUE TO MONITOR UNTIL REPORT GIVEN TO ONCOMING RN.
--- NOTE | 2022-09-27 08:00 | NUR ---
INITIAL ASSESSMENT PATIENT INTUBATED. PATIENT NOT ON ANY SEDATION. PATIENT RESPONDS TO VERBAL STIMULI BY LOOKING AT NURSE BUT IS NOT FOLLOWING ANY COMMANDS. PATIENT MOVES ALL EXTREMITIES BUT HAS LIMITED RANGE. PATIENT AFEBRILE. PATIENT ON SPONTANEOUS VENT SETTINGS OF 10/6 AND 35% FIO2. LUNGS COARSE IN UPPER LOBES AND DIMINISHED IN LOWER LOBES. PATIENT SR TO ST, HR 80S TO 100. SBP IN THE 120S. 1+ EDEMA NOTED IN BLES. VHP TF INFUSING AT GOAL RATE OF 50 MLS/ HOUR WITH 200 ML WATER FLUSH Q4H. ABD SOUNDS HYPOACTIVE. LAST BM DOCUMENTED 2 DAYS AGO. ESCAMILLA DRAINING ANTHONY COLORED URINE. SKIN PALE, FRAGILE. SCATTERED BRUISES AND SCABS THROUGHOUT BODY. SKIN FOLDS REDDENED AND EXCORIATED; POWDER BEING APPLIED AND PILLOW CASES PLACED TO KEEP AREAS DRY. BLES REDDENED AND SCALING. FACE MILADYS. COCCYX REDDENED. BED LOW, CALL LIGHT IN REACH. WILL CONTINUE TO MONITOR PATIENT FREQUENTLY THROUGHOUT SHIFT.
--- NOTE | 2022-09-27 13:00 | NUR ---
PATIENT AFEBRILE. PATIENT REMAINS ON SAME VENT SETTINGS. HR IN THE 70S. SBP IN THE 130S. BLOOD SUGAR 191; COVERAGE ADMINISTERED. PATIENT IN CHAIR. NO OTHER ACUTE CHANGES TO NOTE ON AT THIS TIME. WILL CONTINUE TO MONITOR.
--- NOTE | 2022-09-27 16:48 | NUR ---
PATIENT AFEBRILE. HR IN THE 80S. SBP IN THE LOW 100S. PATIENT REMAINS ON THE SAME VENT SETTINGS. BLOOD SUGAR 198; COVERAGE GIVEN. PATIENT BACK TO BED. NO OTHER ACUTE CHANGES TO NOTE ON AT THIS TIME. WILL CONTINUE TO MONITOR.
--- NOTE | 2022-09-27 18:52 | NUR ---
SHIFT SUMMARY PATIENT REMAINS INTUBATED AND OFF SEDATION. PATIENT REMAINS LOOKING AT NURSE WHEN NURSE TALKING BUT IS NOT FOLLOWING COMMANDS. PATIENT HAS REMAINED AFEBRILE. PATIENT HAS RECEIVED A COUPLE OF DOSES OF PRN FENTANYL FOR SIGNS OF PAIN. LUNGS REMAINED COARSE. PATIENT CONTINUED WITH MODERATE AMOUNT OF THICK, MARTIN/ PINK SECRETIONS FROM ETT. PATIENT REMAINED ON SPONTANEOUS PRESSURE SUPPORT OF 10/6 AND 35% FIO2. PATIENT HR RANGED FROM 70S TO 100. SBP LOW 100S TO 150S. NO BM THIS SHIFT. PATIENT REMAINED ON GOAL RATE OF TF. 1150 MLS OF ANTHONY COLORED URINE OUT FROM ESCAMILLA. NO CHANGES TO SKIN NOTED. PATIENT UP TO CHAIR WITH LIFT THIS SHIFT. VANCO ADDED TO EMAR. BLOOD SUGARS RANGED FROM 187 TO 198. BED LOW, CALL LIGHT IN REACH. REPORT WILL BE GIVEN TO ASSUMING HAMMER ADJUSTER NURSE SHORTLY.
--- NOTE | 2022-09-27 20:00 | NUR ---
ASSESSMENT/ASSUMED CARE PT INTUBATED AND ON MECH VENT. PT OPENS EYES TO VERBAL STIMULI. NOT FOLLOWING INSTRUCTIONS. REACHES FOR ET TUBE WHEN BILAT SOFT WRIST RESTRAINTS OFF. LUNGS COARSE AND DECREASED. VENT SETTINGS SPONT 10/8 FIO2 35%. HEART RATE REGULAR. BP STABLE. BT+ HYPOACTIVE. OG WITH TUBE FEED VITAL HP AT GOAL RATE 50 ML/HR, WATER 200 ML Q4HR. ESCAMILLA CATH PATENT DRAINING ANTHONY/ORANGE URINE. NEW IV TO LEFT WRIST 20G PLACED. IV TO LEFT FOREARM OUT, INTACT. NEW IV 20G TO LEFT FOREARM. PT REPOSITIONED WITH LIFT. PILLOW CASES UNDER FOLDS. COCCYX DRSG INTACT. DRSG TO LEFT ELBOW INTACT. BILAT SOFT WRIST RESTRAINTS BACK ON AFTER ASSESSMENT.
--- NOTE | 2022-09-27 22:00 | NUR ---
BED BATH PT GIVEN BED BATH AND LINEN CHANGE DONE. POWER APPLIED/PILLOW CASES TO UNDER BILAT BREASTS AND ABD FOLD. OPEN AREAS UNDER RIGHT BREAST AND RIGHT PANUS. BELLA CARE AND ESCAMILLA CATH CARE.
[2022-09-28] VITALS (28 sets, daily range): BP systolic 89–180; BP diastolic 35–138
[2022-09-28 03:47] LABS: Hematocrit 37.5 % (33.0-51.0); Hemoglobin 11.7 g/dL (11.5-16.0); Mean Corpuscular HGB 27.4 pg (26.0-34.0); Mean Corpuscular HGB Conc 31.2 g/dL (31.5-36.5); Mean Corpuscular Volume 88 fL (80-100); Platelet Count 105 K/mm3 (150-400); RDW Standard Deviation 51.4 fL (35.1-46.3); Red Blood Cell Count 4.27 M/mm3 (3.80-5.20); White Blood Cell Count 12.64 K/mm3 (4.00-11.30)
[2022-09-28 03:52] LABS: Mean Platelet Volume 12.4 fL (9.1-12.4)
[2022-09-28 04:49] LABS: Bun/Creatinine Ratio 78.3 (12.0-20.0); Creatinine, Blood 0.38 mg/dL (0.40-1.00); Magnesium, Blood 1.9 mg/dL (1.6-2.4); Potassium, Blood 3.4 mmol/L (3.5-5.5)
--- NOTE | 2022-09-28 05:50 | NUR ---
SHIFT SUMMARY PT CONT INTUBATED AND ON MECH VENT. PT HAS BEEN ON SPONT ALL NIGHT 01/07 FIO2 35%. SUCTIONING THICK MARTIN/STEEL SECRECTIONS VIA ET TUBE. PT OPENS EYES TO VERBAL STIMULI, BUT WILL NOT FOLLOW INSTRUCTIONS. CLAMPS MOUTH AND TURNS HEAD SIDE TO SIDE WITH ORAL CARE. REACHES FOR ET TUBE WHEN RESTRAINTS OFF. LUNGS CONT COARSE AND DECREASED. HEART RATE REGULAR, BP STABLE. TURNED Q2HRS. BT+ HYPOACTIVE. TUBE FEED VIA OG VITAL HP AT GOAL RATE 50 ML/HR, WATER 200 ML Q4HR. ESCAMILLA CATH PATENT DRAINING ANTHONY/ORANGE URINE. SKIN BREAK DOWN NOTED UNDER BILAT BREASTS AND ABD FOLDS, PILLOWS CASES UNDER TO WICK MOISTURE AWAY. COCCYX AND LEFT ELBOW DRSG INTACT. TWO NEW IV'S PLACED DURING THE NIGHT. BILAT SOFT WRIST RESTRAINTS ON. LOW POTASSIUM AND PHOS THIS AM, RECEIVED ORDER FOR KPHOS 30 MMOL, CURRENTLY INFUSING. REPORT TO ON COMING NURSE.
--- NOTE | 2022-09-28 07:00 | NUR ---
ASSUME CARE: I have assumed care of this patient.
--- NOTE | 2022-09-28 16:49 | NUR ---
SHIFT SUMMARY: Pt medicated with PRN fentanyl for CPOTs of 5-6. Pt up to chair for several hours. She opens her eyes spontaneously and will track nurse at foot of bed, but does not follow commands. Bilateral wrist restraints still in place. No BM today. Johansen patent and draining to gravity. Tube feeds running at goal.
[2022-09-28 20:58] LABS: Base Excess Venous 13.5 mmol/L; Bicarbonate Venous 35.7 mmol/L (24.0-30.0); PCO2 Venous 46.2 mmHg (38-42); pH Blood Venous 7.51 (7.34-7.37)
[2022-09-28 21:18] LABS: Vancomycin, Trough 18.7 ug/mL (5.0-10.0)
--- NOTE | 2022-09-28 21:38 | NUR ---
ASSUMPTION OF CARE/ASSESSMENT: ASSUMED CARE OF PT AT 1900. PT IS INTUBATED AND NOT SEDATED AT THIS TIME; VENT SETTINGS SPONT. 10/8 FIO2 35%. PT IS DROWSY BUT AWAKENS TO VERBAL STIMILI/MOVEMENT; PT IS TRACKING MOVEMENTS IN ROOM BUT IS NOT FOLLOWING COMMANDS AT THIS TIME. PT HAS COARSE LUNG SOUNDS THROUGHOUT WITH DIM BASES. PT IS SR-ST ON MONITOR WITH HR 90-110 AND SBP 140-160'S. PT HAS OGT PRESENT AND PATENT WITH VHP @ 50 MLS/HR; HYPOACTIVE BOWEL SOUNDS IN ALL QUADRANTS. PT HAS ESCAMILLA PATENT AND DRAINING TO GRAVITY; URINE CLEAR, YELLOW. PT SKIN HAS SCATTERED BRUISES AND OBSERVED TO BE VERY FRAGILE. PT IN BSWR AND IS FREQUENTLY PULLING AT RESTRAINTS. BED LOWERED, CALL LIGHT IN REACH, WILL CONTINUE TO MONITOR.
[2022-09-29] VITALS (24 sets, daily range): BP systolic 112–174; BP diastolic 45–156
[2022-09-29 03:40] LABS: Hematocrit 40.1 % (33.0-51.0); Hemoglobin 12.9 g/dL (11.5-16.0); Mean Corpuscular HGB 27.9 pg (26.0-34.0); Mean Corpuscular HGB Conc 32.2 g/dL (31.5-36.5); Mean Corpuscular Volume 87 fL (80-100); Mean Platelet Volume 12.5 fL (9.1-12.4); Platelet Count 141 K/mm3 (150-400); RDW Coefficient Variation 15.9 % (11.7-14.2); RDW Standard Deviation 50.4 fL (35.1-46.3); Red Blood Cell Count 4.63 M/mm3 (3.80-5.20); White Blood Cell Count 14.96 K/mm3 (4.00-11.30)
[2022-09-29 04:16] LABS: Albumin, Blood 1.9 g/dL (3.4-5.0); Albumin/Globulin Ratio 0.5 (0.8-1.8); Bilirubin, Total 1.5 mg/dL (0.1-1.0); Bun/Creatinine Ratio 63.3 (12.0-20.0); Calcium, Blood 7.8 mg/dL (8.5-10.1); Creatinine, Blood 0.33 mg/dL (0.40-1.00); Globulin, Blood 3.7 g/dL (2.2-4.0); Magnesium, Blood 1.5 mg/dL (1.6-2.4); Potassium, Blood 3.6 mmol/L (3.5-5.5); Total Protein, Blood 5.6 g/dL (6.4-8.2)
--- NOTE | 2022-09-29 05:58 | NUR ---
SHIFT SUMMARY: NO ACUTE CHANGES OVERNIGHT; VSS THROUGHOUT THE SHIFT. PT REMAINS INTUBATED ON SPONT. 01/07 AND FIO2 35%. PT TOLERATED VENT WELL THROUGHOUT THE NIGHT; LUNG SOUNDS REMAIN COARSE THROUGHOUT WITH DIM BASES. PT HAD 1800 ML URINE OUTPUT, AND NO BM THIS SHIFT. NO INSULIN COVERAGE THIS SHIFT. BED LOWERED, CALL LIGHT IN REACH, WILL CONTINUE TO MONITOR UNTIL ONCOMING RN ARRIVES.
--- NOTE | 2022-09-29 12:16 | NUR ---
PATIENT IS INTUBATED AT THIS TIME. WILL CONTINUE TO ASSESS RISK PATIENT CONDITION CHANGES/POST EXTUBATION. WHEN FAMILY/VISITORS COME TO THE HOSPITAL THEY WILL BE EDUCATED ON IGNITION SOURCES AND RISK OF INJURY WHILE OXYGEN IS IN USE WELL ASKED IF THEY HAVE IGNITION SOURCES IN THEIR PERSONAL BELONGINGS.
--- NOTE | 2022-09-29 17:26 | NUR ---
SHIFT SUMMARY NO ACUTE CHANGES THIS SHIFT. PT REMAINS INTUBATED, NOT SEDATED. PT IS ALERT, BUT DOES NOT FOLLOW ANY COMMANDS. PT LOOKS TOWARDS VOICE BREIFLY, BUT DOES NOT TRACK. PT CONTINUALLY MOVES ARMS AND PULLS AT RESTRAINTS. VENT SETTINGS REMAIN PRESSURE SUPPORT 10/8, FIO2 35%. OGT IN PLACE WITH TF INFUSING AT GOAL RATE. NS INFUSING TKO THROUGH PIV. ESCAMILLA REMAINS IN PLACE WITH DARK YELLOW URINE OUTPUT NOTED THIS SHIFT. PT WITH SMALL BM THIS SHIFT. WOUNDS/SKIN CONDITION REMAINS UNCHANGED. NO PT FAMILY AT BEDSIDE THIS SHIFT. WILL CONTINUE TO MONITOR AND REPORT OFF TO ONCOMING RN.
[2022-09-30] VITALS (21 sets, daily range): BP systolic 65–154; BP diastolic 38–99
[2022-09-30 03:32] LABS: BASOPHILS ABSOLUTE AUTO 0.04 K/mm3 (0.00-0.23); BASOPHILS PERCENT AUTO 0 % (0-2); EOSINOPHILS ABSOLUTE AUTO 0.17 K/mm3 (0.00-0.68); EOSINOPHILS PERCENT AUTO 2 % (0-6); Hematocrit 35.9 % (33.0-51.0); Hemoglobin 11.5 g/dL (11.5-16.0); IMMATURE GRAN ABSOLUTE AUTO 0.44 K/mm3 (0.00-0.10); IMMATURE GRAN PERCENT AUTO 5 % (0-1); LYMPHOCYTES PERCENT AUTO 8 % (21-46); MONOCYTES ABSOLUTE AUTO 0.57 K/mm3 (0.16-1.47); MONOCYTES PERCENT AUTO 6 % (4-13); Mean Corpuscular HGB 27.7 pg (26.0-34.0); Mean Corpuscular Volume 87 fL (80-100); Mean Platelet Volume 12.1 fL (9.1-12.4); NEUTROPHILS ABSOLUTE AUTO 7.64 K/mm3 (1.96-9.15); NEUTROPHILS PERCENT AUTO 79 % (41-73); Platelet Count 158 K/mm3 (150-400); RDW Coefficient Variation 15.9 % (11.7-14.2); RDW Standard Deviation 50.4 fL (35.1-46.3); Red Blood Cell Count 4.15 M/mm3 (3.80-5.20); White Blood Cell Count 9.66 K/mm3 (4.00-11.30)
[2022-09-30 03:52] LABS: Bun/Creatinine Ratio 63.5 (12.0-20.0); Calcium, Blood 7.8 mg/dL (8.5-10.1); Creatinine, Blood 0.3 mg/dL (0.40-1.00); Magnesium, Blood 1.7 mg/dL (1.6-2.4); Phosphorus, Blood 2.3 mg/dL (2.5-4.9); Potassium, Blood 3.6 mmol/L (3.5-5.5)
--- NOTE | 2022-09-30 06:43 | NUR ---
SHIFT SUMMARY; NO ACUTE CHNAGES OVERNIGHT; VSS THROUGHOUT THE SHIFT. PT HAD A BED BATH AND COMPLETE LINEN CHANGE THIS SHIFT. AT THE END OF THE SHIFT PT HAD A BOWEL MOVEMENT AND LAGUNA PAD CHANGED AT THIS TIME. PT HAD 1400 URINE OUTPUT THIS SHIFT. NEW IV PLACED THIS SHIFT. WILL CONTINUE TO MONITOR UNTIL ONCOMING RN ARRIVES.
[2022-09-30 10:16] LABS: Vancomycin, Trough 21.5 ug/mL (5.0-10.0)
--- NOTE | 2022-09-30 16:59 | NUR ---
SHIFT SUMMARY NO ACUTE CHANGES THIS SHIFT. PT REMAINS INTUBATED, AND NOT SEDATED THROUGHOUT MOST OF THE SHIFT. PT SEDATED FOR SHORT TIME DURING TRIP TO CT, THEN SEDATION STOPPED AFTER RETURNING TO ICU ROOM. PT OPENS EYES SPONTANEOUSLY AND TO VOICE. PT LOOKS TOWARDS VOICE FOR SHORT PERIODS. PT DOES NOT FOLLOW ANY COMMANDS. PT MOVES ALL EXTREMITIES SPONTANEOUSLY AND OCCASIONALLY THRASHES AROUND IN BED. VITAL SIGNS STABLE. VENT SETTINGS REMAIN PRESSURE SUPPORT 10/8, FIO2 35%. OGT REMAINS IN PLACE WITH TF INFUSING AT GOAL RATE. POWERGLIDE TO RAMU WITH NS INFUSING TKO. ESCAMILLA REMAINS IN PLACE WITH DARK YELLOW OUTPUT NOTED. PT WITH LOOSE BM THIS SHIFT. SKIN REMAINS UNCHANGED. SBW RESTRAINTS IN PLACE. NO FAMILY AT BEDSIDE THIS SHIFT. WILL CONTINUE TO MONITOR AND REPORT OFF TO ONCOMING RN.
--- NOTE | 2022-09-30 21:31 | NUR ---
PATIENTS SON TAKING THE PATIENTS RING HOME WITH HIM.
[2022-09-30 21:36] LABS: Vancomycin, Random 10.4 ug/mL
[2022-10-01] VITALS (23 sets, daily range): BP systolic 94–170; BP diastolic 46–102
[2022-10-01 03:22] LABS: Hematocrit 37.4 % (33.0-51.0); Hemoglobin 12.2 g/dL (11.5-16.0); Mean Corpuscular HGB Conc 32.6 g/dL (31.5-36.5); Mean Corpuscular Volume 86 fL (80-100); Mean Platelet Volume 11.3 fL (9.1-12.4); Platelet Count 178 K/mm3 (150-400); RDW Coefficient Variation 15.7 % (11.7-14.2); RDW Standard Deviation 49.7 fL (35.1-46.3); Red Blood Cell Count 4.35 M/mm3 (3.80-5.20); White Blood Cell Count 8.77 K/mm3 (4.00-11.30)
[2022-10-01 03:44] LABS: Magnesium, Blood 1.8 mg/dL (1.6-2.4)
[2022-10-01 03:45] LABS: BAND PERCENT MAN 1 % (0-8); BASOPHILS PERCENT MAN 0 % (0-2); Bun/Creatinine Ratio 55.9 (12.0-20.0); Calcium, Blood 8.1 mg/dL (8.5-10.1); Creatinine, Blood 0.3 mg/dL (0.40-1.00); EOSINOPHILS ABSOLUTE MAN 0.08 K/mm3 (0.00-0.68); EOSINOPHILS PERCENT MAN 1 % (0-6); LYMPHOCYTES ABSOLUTE MAN 0.52 K/mm3 (0.84-5.20); LYMPHOCYTES PERCENT MAN 6 % (21-46); METAMYELOCYTE ABSOLUTE MAN 0.26 K/mm3 (0.00-0.00); METAMYELOCYTE PERCENT MAN 3 % (0-0); MONOCYTES ABSOLUTE MAN 0.61 K/mm3 (0.16-1.47); MONOCYTES PERCENT MAN 7 % (4-13); MYELOCYTE ABSOLUTE MAN 0.17 K/mm3 (0.00-0.00); MYELOCYTE PERCENT MAN 2 % (0-0); Phosphorus, Blood 2.7 mg/dL (2.5-4.9); Potassium, Blood 3.6 mmol/L (3.5-5.5); SEG NEUTROPHILS PERCENT MAN 80 % (41-73); TOTAL CELLS COUNTED 100
--- NOTE | 2022-10-01 06:23 | NUR ---
PATIENT OPENS EYES SPONTANEOUSLY AND TRACKS STAFF IN THE ROOM. DOES NOT FOLLOW COMMANDS OR NOD APPROPRIATELY TO QUESTIONS. SR/ST WITH HR 80-105. INTUBATED, TOLERATING PRESSURE SUPPORT 10/8 35%. OGT WITH VITAL HP @60 (GOAL) WITH Q4 200ML FLUSH. NO BOWEL MOVEMENT. ESCAMILLA IN PLACE. PATIENT INTUBATED AND CONFUSED, RN NOT ABLE TO EDUCATE ABOUT POTENTIAL SOURCES OF IGNITION.
--- NOTE | 2022-10-01 17:08 | NUR ---
SHIFT SUMMARY NO ACUTE CHANGES THIS SHIFT. PT REMAINS INTUBATED, AND NOT SEDATED. PT OPENS EYES SPONTANEOULSY AND BREIFLY TRACKS WHEN IN ROOM. PT TURNS TO VOICE. PT DOES NOT FOLLOW DIRECTIONS. PT MOVES ALL EXTREMITIES SPONTANEOUSLY. VENT SETTINGS REMAIN PRESSURE SUPPORT 10/8, FIO2 35%. PT CONTINUES TO HAVE LARGE AMOUNT OF THICK, MARTIN ETT SECRETIONS. OGT REMAINS IN PLACE WITH TF INFUSING AT GOAL RATE. PG TO RAMU REMAINS IN PLACE WITH NS INFUSING TKO. ESCAMILLA REMAINS IN PLACE WITH DARK YELLOW OUTPUT NOTED. PT SKIN CONDITION IS UNCHANGED. SBW RESTRAINTS IN PLACE. VITAL SIGNS STABLE. PT AND SON AT BEDSIDE FOR BREIF VISIT THIS AFTERNOON. FAMILY UPDATED BY DR QUEZADA. PLAN TO ATTEMPT EXTUBATION TOMORROW MORNING IF PT CONDITION REMAINS UNCHANGED OVERNIGHT. WILL CONTINUE TO MONITOR AND REPORT OFF TO ONCOMING RN.
[2022-10-02] VITALS (19 sets, daily range): BP systolic 121–159; BP diastolic 51–106
[2022-10-02 04:18] LABS: PCO2 Arterial 47.5 mmHg (35-45); PO2 Arterial 83.1 mmHg (80-100); pH Blood Arterial 7.51 (7.35-7.45)
--- NOTE | 2022-10-02 05:44 | NUR ---
NOC SHIFT SUMMARY NEURO: AWAKE, DID NOT SLEEP. FOLLOWS COMMANDS CONSISTENTLY, SQUEEZING BOTH HANDS AND MOVING BOTH FEET WHEN ASKED. DOES NOT ANSWER YES/NO QUESTIONS. PULLING AGAINST RESTRAINTS CONSTANTLY. REPOSITIONED OFTEN. NO SEDATION THIS SHIFT. CARDIAC: SR 80-90'S. BP WNL. BLE EDEMA IMPROVING. RESP: VENT SETTINGS UNCHANGED. PS 10/8 FIO2 35%. MODERATE THICK SECRETIONS, MARTIN IN COLOR SUCTIONED FROM ETT. PT IS NOT COOPERATIVE WITH ORAL CARE. GI: OGT VHP AT 60ML/HR (GOAL). BS NORMOACTIVE. NO BM THIS SHIFT : ESCAMILLA PATENT AND DRAINING ANTHONY URINE. SKIN: MULTIPLE AREAS OF SCATTERED BRUISING, SKIN IS FRAGILE. MEPILEX TO SKIN TEAR ON RIGHT ELBOW. PREVENTATIVE MEPILEX TO COCCYX. PT HAD FULL CHG BATH THIS SHIFT, ALL LINEN AND HOSPITAL GOWN CHANGED. IV: PG TO LEFT UPPER ARM, WITHDRAWS BLOOD BUT ONLY 2-3 ML. UNABLE TO OBTAIN LAB SAMPLE. PIV TO RIGHT HAND/WRIST, FLUSHES WELL BUT DOES NOT WITHDRAW BLOOD. NO FAMILY AT BEDSIDE. REPORTED PLAN IS TO EXTUBATE TODAY IF PT CONTINUES TO BE STABLE. AM LABS SENT. PT IS INTUBATED, WILL CONTINUE TO ASSESS IGNITION RISK PATIENT CONDITION CHANGES/POST EXTUBATION. NO FAMILY AT BEDSIDE. HER.
[2022-10-02 06:06] LABS: Hematocrit 37.7 % (33.0-51.0); Hemoglobin 12.1 g/dL (11.5-16.0); Mean Corpuscular HGB 27.8 pg (26.0-34.0); Mean Corpuscular HGB Conc 32.1 g/dL (31.5-36.5); Mean Corpuscular Volume 87 fL (80-100); Mean Platelet Volume 12.3 fL (9.1-12.4); Platelet Count 191 K/mm3 (150-400); RDW Coefficient Variation 15.9 % (11.7-14.2); RDW Standard Deviation 50.2 fL (35.1-46.3); Red Blood Cell Count 4.36 M/mm3 (3.80-5.20); White Blood Cell Count 8.42 K/mm3 (4.00-11.30)
[2022-10-02 06:20] LABS: Bun/Creatinine Ratio 44.2 (12.0-20.0); Calcium, Blood 8.2 mg/dL (8.5-10.1); Creatinine, Blood 0.34 mg/dL (0.40-1.00); Magnesium, Blood 1.6 mg/dL (1.6-2.4); Phosphorus, Blood 2.4 mg/dL (2.5-4.9); Potassium, Blood 3.3 mmol/L (3.5-5.5)
--- NOTE | 2022-10-02 06:25 | NUR ---
CALL PLACED TO DR. SALDAÑA TO REQUEST ELECTROLYTE REPLACEMENT. NO ANSWER, LEFT MESSAGE REQUESTING A RETURN CALL. CALL BACK NUMBER PROVIDED.
[2022-10-02 07:06] LABS: BASOPHILS PERCENT MAN 0 % (0-2); EOSINOPHILS ABSOLUTE MAN 0.08 K/mm3 (0.00-0.68); EOSINOPHILS PERCENT MAN 1 % (0-6); LYMPHOCYTES % ATYPICAL MANUAL 1 % (0-0); LYMPHOCYTES ABSOLUTE MAN 0.58 K/mm3 (0.84-5.20); LYMPHOCYTES PERCENT MAN 6 % (21-46); METAMYELOCYTE ABSOLUTE MAN 0.16 K/mm3 (0.00-0.00); METAMYELOCYTE PERCENT MAN 2 % (0-0); MONOCYTES ABSOLUTE MAN 0.25 K/mm3 (0.16-1.47); MONOCYTES PERCENT MAN 3 % (4-13); NEUTROPHILS ABSOLUTE MAN 7.32 K/mm3 (1.96-9.15); SEG NEUTROPHILS PERCENT MAN 87 % (41-73); TOTAL CELLS COUNTED 100
--- NOTE | 2022-10-02 07:10 | NUR ---
ASSUMPTION OF CARE PT REMAINS INTUBATED WITH VENT SETTINGS SPONT 01/07/35%. TV 250S-380S. RR 20S-30S. PT OPENS EYES SPONTANEOUSLY, TRACKS MOVEMENTS. SHE INTERMITTENTLY FOLLOWS SIMPLE COMMANDS INCLUDING SQUEEZING HANDS AND WIGGLING TOES. PT BECOMES AGITATED WITH NOXIOUS STIMULI, MOVES HEAD SIDE TO SIDE AND PULLS AGAINST RESTRAINTS. TUBE FEEDING INFUSING AT GOAL RATE. ESCAMILLA DRAINING TO GRAVITY. SEE SHIFT ASSESSMENT.
--- NOTE | 2022-10-02 11:38 | NUR ---
EXTUBATION PT EXTUBATED BY HAMIDA REYES AT 1138. PT TOLERATED WELL. SHE IS ON 6L NC WITH SPO2 >92%. AND SON AT BEDSIDE. REQUESTING CONTINUOUS IMPROVEMENT ENGINEER. THIS RN RETRIEVED CONTINUOUS IMPROVEMENT ENGINEER PHONE AND BEGAN CALL. REQUESTS IN-PERSON PAINT SPRAY TENDER. CHARGE NURSE AND NURSING MATERIAL FLOW ANALYST NOTIFIED.
--- NOTE | 2022-10-02 14:24 | NUR ---
Review of pt with faisal and crystalter. Review plan of rehab. supportive care with .
--- NOTE | 2022-10-02 15:19 | NUR ---
MEDICAID PURCHASING EXPEDITOR PHONE CALL RECEIVED FROM ASHANTI WITH [employer] WITH [employer] IN [place] WHO STS SHE IS PT'S MEDICAID PURCHASING EXPEDITOR. CASE MANAGEMENT NOTIFIED AND WILL FOLLOW UP. ASHANTI: [phone]
--- NOTE | 2022-10-02 19:10 | NUR ---
SHIFT SUMMARY PT EXTUBATED TODAY AT 1138. PT WAS ON 6L NC SINCE EXTUBATION. DURING LAST REPOSITIONING, SPO2 DECREASED TO 78% AND PT PLACED ON NON-REBREATHER. SPO2 INCREASED TO 99%. ATTEMPTED TO TRANSITION BACK TO NC, SPO2 88-90%. SET UP AND LAY OUT INSPECTOR NOTIFIED, ORDER RECEIVED FOR BIPAP WITH RECOMMENDED SETTINGS. RT NOTIFIED AND CURRENTLY IN ROOM PLACING BIPAP. PT LESS ALERT THAN EARLIER. WITHDRAWS FROM NOXIOUS STIMULI BUT NOT FOLLOWING COMMANDS. CBG 71. DEXTROSE GIVEN PER EMAR AND RECHECK WAS 120. SHE REMAINS NPO. ESCAMILLA PATENT AND DRAINING ANTHONY URINE TO GRAVITY.
[2022-10-03] VITALS (22 sets, daily range): BP systolic 118–153; BP diastolic 48–92
[2022-10-03 03:58] LABS: Hematocrit 39.6 % (33.0-51.0); Hemoglobin 12.6 g/dL (11.5-16.0); Mean Corpuscular HGB Conc 31.8 g/dL (31.5-36.5); Mean Corpuscular Volume 88 fL (80-100); Mean Platelet Volume 11.7 fL (9.1-12.4); Platelet Count 191 K/mm3 (150-400); RDW Coefficient Variation 16.1 % (11.7-14.2); RDW Standard Deviation 51.4 fL (35.1-46.3); White Blood Cell Count 8.65 K/mm3 (4.00-11.30)
[2022-10-03 04:27] LABS: BASOPHILS PERCENT MAN 0 % (0-2); EOSINOPHILS PERCENT MAN 0 % (0-6); LYMPHOCYTES ABSOLUTE MAN 0.51 K/mm3 (0.84-5.20); LYMPHOCYTES PERCENT MAN 6 % (21-46); METAMYELOCYTE ABSOLUTE MAN 0.17 K/mm3 (0.00-0.00); METAMYELOCYTE PERCENT MAN 2 % (0-0); MONOCYTES ABSOLUTE MAN 0.34 K/mm3 (0.16-1.47); MONOCYTES PERCENT MAN 4 % (4-13); MYELOCYTE ABSOLUTE MAN 0.17 K/mm3 (0.00-0.00); MYELOCYTE PERCENT MAN 2 % (0-0); NEUTROPHILS ABSOLUTE MAN 7.43 K/mm3 (1.96-9.15); SEG NEUTROPHILS PERCENT MAN 86 % (41-73); TOTAL CELLS COUNTED 100
[2022-10-03 05:59] LABS: Albumin, Blood 2.1 g/dL (3.4-5.0); Albumin/Globulin Ratio 0.5 (0.8-1.8); Bilirubin, Total 1.1 mg/dL (0.1-1.0); Calcium, Blood 8.9 mg/dL (8.5-10.1); Creatinine, Blood 0.31 mg/dL (0.40-1.00); Globulin, Blood 4.6 g/dL (2.2-4.0); Magnesium, Blood 2.1 mg/dL (1.6-2.4); Potassium, Blood 3.9 mmol/L (3.5-5.5); Total Protein, Blood 6.7 g/dL (6.4-8.2)
--- NOTE | 2022-10-03 06:15 | NUR ---
NOC SHIFT SUMMARY NEURO: FOLLOWS COMMANDS, OPENS EYES TO VOICE, MAKES EYE CONTACT, DOES NOT ANSWER QUESTIONS OR ATTEMPT TO VERBALIZE. CARDIAC: SR-ST 80-110, BP WNL RESP: LUNGS COARSE, ENCOURAGED COUGH, PT UNABLE. BIPAP INITIATED AT THE BEGINNING OF THE SHIFT DUE TO SUSTAINED DESATURATION. BIPAP SETTING TITRATED TO KEEP O2 SAT > 92%. 2 NEB TREATMENTS GIVEN WITH IMPROVEMENT OF AIR MOVEMENT. PT TOLERATED BIPAP WELL. GI: NPT. ST EVAL ORDERED, PT UNABLE TO FOLLOW COMMANDS ENOUGH TO ATTEMPT SWALLOWING SAFELY AT THIS JUAN. : ESCAMILLA TO GRAVITY, ADEQUATE UO. SKIN: OPEN AREAS UNDER SKIN FOLDS IMPROVING. CLEANSED, DRIED AND POWDER APPLIED. CHG BATH GIVEN. IV: PIV TO RIGHT FA, DRESSING CHANGED. PG TO LEFT UPPER ARM, POSITIONAL, NS INFUSING AT TKO. NO FAMILY AT BEDSIDE. AND SON PLAN TO VISIT TODAY. REQUESTING IN PERSON HAMMER ADJUSTER. RESIDENT PLANS TO TRANSLATE TO PER REPORT, IS ARABIC SPEAKING. PT NON-VERBAL AND NOT ABLE TO DEMONSTRATE UNDERSTANDING, WILL CONTINUE TO ASSESS IGNITION RISK PT CONDITION IMPROVES, NO FAMILY AT BEDSIDE, NO IGNITION SOURCES IDENTIFIED IN PT ROOM.
--- NOTE | 2022-10-03 07:30 | NUR ---
ASSUMED CARE: PT RESTING IN BED WITH BIPAP IN PLACE. SETTINGS 14/8 AND 40% FIO2. SATTING 98% SO TITRATED HER TO 35% FIO2. SPEECH THERAPY CAME TO EVALUATE AND STATES SHE WILL TRY AGAIN LATER THIS AM. DISCUSSED WITH RT AND WILL SWITCH TO HFNC TO EVALUATE PT'S TOLERANCE. PT IS AWAKE AND LOOKS AT STAFF AND SQUEEZED HANDS WHEN ASKED BUT DOES NOT VERBALLY RESPOND. COUNTERS AND BEDSIDE TABLES CLEAR OF IGNITABLE DEVICES SUCH LIGHTERS/MATCHES/CIGARRETTES. WILL CONTINUE TO MONITOR FOR SAFETY.
--- NOTE | 2022-10-03 08:18 | NUR ---
SPEECH THERAPY CALLED AND STATED THAT PT'S EVALUATION WOULD BE DEFERRED TO TOMORROW DUE TO WANTING TO EVALUATE AFTER PT HAS BEEN OFF BIPAP AND ABLE TO MAINTAIN ON NC. ASSISTANT EXECUTIVE HOUSEKEEPER AWARE AND WILL RELAY TO KATE
--- NOTE | 2022-10-03 08:46 | NUR ---
PT TAKEN OFF OF BIPAP AND SWITCHED TO HI-FLOW NC AT 8L. SATTING 94% ON THIS. CONGESTED COUGH NOTED. DR QUEZADA AWARE THAT SPEECH THERAPY EVALUATION WILL OCCUR TOMORROW AM. PT NPO AT THIS TIME.
--- NOTE | 2022-10-03 10:32 | NUR ---
DR QUEZADA CAME OUT OF PT'S ROOM AND INSTRUCTED TO SWITCH PT FROM HI-FLOW NC TO AIRVOW DUE TO THE HIGH HUMIDITY NEEDED. RT AT BEDSIDE NOW AND APPLIED AIRVO. PT CURRENTLY ON 45L AND 45% FIO2, SATTING 96% ON THIS. RT ADMINISTERING CPT AT THIS TIME.
--- NOTE | 2022-10-03 11:34 | NUR ---
PT'S AND SON AT BEDSIDE AT THIS TIME. UPDATE GIVEN. NO FURTHER NEEDS OR CONCERNS AT THIS TIME.
--- NOTE | 2022-10-03 13:55 | NUR ---
PT'S FRIEND NILDA CALLED TO CHECK IN ON PT. STATED THAT PT'S ANG NEEDS HELP COUNTING HIS MONEY BECAUSE HE DOES NOT KNOW HOW BUT IS EMBARRASSED TO ASK AND DOES NOT WANT SON TO KNOW THAT HE NEEDS HELP. INFORMED NILDA THAT ANG STATED HE WAS GOING BACK TO [place] TODAY AND TO LET US KNOW WHEN HE WAS RETURNING SO THAT WE COULD COORDINATE WITH STAFF TO HELP HIM WITH THIS. STATED THAT IN THE MEANTIME STORE RECEIVING CLERK HAS BEEN MADE AWARE OF ANG'S NEED.
--- NOTE | 2022-10-03 14:33 | NUR ---
HEADER DOCK AT BEDSIDE ASSISTING PT'S WITH COUNTING HIS MONEY WHILE THIS RN WITNESSED. PT AND FAMILY SEEKING OUT PT'S BELONGINGS. THIS RN SEARCHED IN ROOM AND ENQUIRED AT PCU. PCU CALLED SECURTITY AND CHECKED WELL. NO BELONGIGNGS FOUND AT THIS TIME.
--- NOTE | 2022-10-03 15:00 | NUR ---
Spiritual care visit conducted. Upon being contacted with a request for spiritual care. I visit with the patient's spouse Syd. Syd asks me to count his money to see how many nights he can stay in a hotel here in [facility] before having to return to [place]. I count out $449.00 in the presence of patient's RN Karyn, and then place $249.00 back in the bag and hand $200.00 back to Syd who puts the $200.00 in his pocket. He then talks at length about the many jobs he has had, starting when he was 2 y/o when his father left. He then shares about the solid friend and family support network that he has in [place] and the great connections that he has in the [employer] that he attends with the patient. I provide therapeutic listening, gentle primary counselor and prayer. Syd responded well and showed shigns of being encouraged in his jarrett and and emotional state. Spiritual care will remain available.
--- NOTE | 2022-10-03 18:14 | NUR ---
SHIFT SUMMARY: PT RESTING IN BED. AIRVO IN PLACE AT 45L AND 45% FIO2. NSR ON TELE IN THE 70S.PT HAS BEEN UP TO CHAIR WITH LIFT. OCCASIONALLY FOLLOWS COMMANDS BUT IS RESISTANT TO CARE AT TIMES WELL. AND SON WERE AT BEDSIDE THIS SHIFT AND WERE GIVEN UPDATES. FERRIS WHEEL OPERATOR VISITED WITH WELL. PLAN IS FOR CONTINUED OBSERVATION FOR IMPROVEMENT. CPT PER RT. ANDI FOR CONTINUOUS I AND O AND WOUND HEALING. NO ACUTE NEEDS AT THIS TIME.
--- NOTE | 2022-10-03 19:35 | NUR ---
ASSUMED CARE AT 1900 PATIENT IS ALERT AND TRACKING MOVEMENT WOTH EYES. HAS PURPOSEFUL MOVEMENT BUT NOT FOLLOWING COMMANDS OR COOPERATING WITH CARE. MUMBLES WORDS OCCASIONALLY. 02 SATS 93% ON AIRVO 45L 45%, RR 18, LS COARSE TO DIM. HR SR 80. BP STABLE. ESCAMILLA PATENT AND DRAINING TO GRAVITY, ANTHONY COLORED. SEE SHIFT ASSESSMENT FOR MORE INFORMATION.
[2022-10-04] VITALS (23 sets, daily range): BP systolic 85–153; BP diastolic 50–116
[2022-10-04 04:28] LABS: BASOPHILS ABSOLUTE AUTO 0.03 K/mm3 (0.00-0.23); BASOPHILS PERCENT AUTO 1 % (0-2); EOSINOPHILS ABSOLUTE AUTO 0.06 K/mm3 (0.00-0.68); EOSINOPHILS PERCENT AUTO 1 % (0-6); Hematocrit 38.7 % (33.0-51.0); Hemoglobin 12.4 g/dL (11.5-16.0); IMMATURE GRAN ABSOLUTE AUTO 0.23 K/mm3 (0.00-0.10); IMMATURE GRAN PERCENT AUTO 4 % (0-1); LYMPHOCYTES ABSOLUTE AUTO 0.72 K/mm3 (0.84-5.20); LYMPHOCYTES PERCENT AUTO 12 % (21-46); MONOCYTES ABSOLUTE AUTO 0.33 K/mm3 (0.16-1.47); MONOCYTES PERCENT AUTO 5 % (4-13); Mean Corpuscular HGB 28.1 pg (26.0-34.0); Mean Corpuscular Volume 88 fL (80-100); Mean Platelet Volume 10.5 fL (9.1-12.4); NEUTROPHILS ABSOLUTE AUTO 4.74 K/mm3 (1.96-9.15); NEUTROPHILS PERCENT AUTO 78 % (41-73); Platelet Count 191 K/mm3 (150-400); RDW Coefficient Variation 15.9 % (11.7-14.2); RDW Standard Deviation 50.7 fL (35.1-46.3); Red Blood Cell Count 4.41 M/mm3 (3.80-5.20); White Blood Cell Count 6.11 K/mm3 (4.00-11.30)
[2022-10-04 04:50] LABS: Albumin, Blood 2.2 g/dL (3.4-5.0); Albumin/Globulin Ratio 0.5 (0.8-1.8); Bilirubin, Total 1.2 mg/dL (0.1-1.0); Bun/Creatinine Ratio 38.6 (12.0-20.0); Calcium, Blood 9.1 mg/dL (8.5-10.1); Creatinine, Blood 0.36 mg/dL (0.40-1.00); Globulin, Blood 4.6 g/dL (2.2-4.0); Magnesium, Blood 1.9 mg/dL (1.6-2.4); Phosphorus, Blood 2.9 mg/dL (2.5-4.9); Potassium, Blood 3.7 mmol/L (3.5-5.5); Total Protein, Blood 6.8 g/dL (6.4-8.2)
--- NOTE | 2022-10-04 05:41 | NUR ---
SHIFT SUMMARY PATIENT IS ALERT AND ABLE TO SPEAK AT TIMES, PURPOSEFUL MOVEMENT BUT DOES NOT FOLLOW COMMANDS. AGITATED WITH ALL CARE. 02 SATS 94% ON AIRVO 45L 45%, RR 20. LS REMAIN COARSE, NT SUCTIONED THICK MARTIN SPUTUM. PATIENT HAVING TROUBLE CLEARING SECRETIONS AND REFUSES ORAL SUCTIONING. HR SR 90, BP STABLE. ESCAMILLA PATENT AND DRAINING TO GRAVITY. PATIENT REPOSITIONED Q2 HOURS. PATIENT TEACHING PROVIDED ABOUT IGNITION SOURCE AND RISK WHILE USING OXYGEN. CALL LIGHT IN REACH.
--- NOTE | 2022-10-04 14:33 | NUR ---
Spiritual care visit conducted. PAtient is sitting on a chair and alert. Patient's spouse, Syd and son Paul are present. Syd is in much better spirits today and is wanting patient's request for water to be met even patientis NPO for now. Syd talks about wanting to take her home now and patient says, "I got to go." Patient appears to be working on a BM so I wasn't sure everyone was clear on the pt's needs and wants. I did provide therapeutic listening and prayer upon request. Syd voices his appreciation and seems encouraged in his jarrett.
--- NOTE | 2022-10-04 17:30 | NUR ---
SHIFT SUMMARY PT DID WELL THIS SHIFT. PT MORE ALERT THIS AFTERNOON WITH FAMILY VISIT. PT SPEAKS SOME WORDS AT TIMES, BUT MUMBLES. PT FOLLOWS SIMPLE COMMANDS AT TIMES. PT UP TO RECLINER CHAIR WITH LIFT MOST OF THIS SHIFT. PT REMAINS ON AIRVO 45L, FIO2 35%. VITAL SIGNS STABLE. POWERGLIDE TO RAMU SALINE LOCKED. ESCAMILLA REMAINS IN PLACE WITH DARK YELLOW OUTPUT NOTED. SKIN CONDITION UNCHANGED. PT UNABLE TO PARTICIPATE WITH SPEECH THERAPY THIS MORNING. PT REMAINS NPO. WILL CONTINUE TO MONITOR AND REPORT OFF TO ONCOMING RN.
--- NOTE | 2022-10-04 20:08 | NUR ---
ASSUMED CARE AT 1900 PATIENT IS ALERT AND ABLE TO TRACK MOVEMENT WITH EYES AND SPEAK WHEN AGITATED. PURPOSEFUL MOVEMENT OF EXTREMITIES. PATIENT NOT FOLLOWING COMMANDS AND NOT COOPERATIVE WITH CARE. 02 SATS 93% ON AIRVO 45L 35%, RR 20. LS COARSE T/O, RT TO ROOM AND CPT DONE. HR SR 70s. BP STABLE. ESCAMILLA PATENT AND DRAINING TO GRAVITY. PATIENT REPOSITIONED. INGNITION SOURCE AND RISK ASSESSED, PATIENT UNRECEPTIVE BUT NO IGNITION SOURCE IN ROOM. CALL LIGHT IN REACH, SEE SHIFT ASSESSMENT FOR MORE INFORMATION.
[2022-10-05] VITALS (14 sets, daily range): BP systolic 89–161; BP diastolic 48–103
--- NOTE | 2022-10-05 06:26 | NUR ---
SHIFT SUMMARY NO CHANGES OVERNIGHT. PATIENT STILL TOLERATING AIRVO. CPT DONE. BED BATH DONE. POWERGLIDE DRESSING CHANGED. WOUNDS DRESSINGS CHANGED. PHOTOS IN CHART OF SKIN UPDATED. PATIENT TURNED Q2 HOURS. CALL LIGHT IN REACH
--- NOTE | 2022-10-05 08:12 | NUR ---
AM NOTE... ASSUMED CARE OF PT AT 0700, AT THE TIME OF THIS ASSESSMENT THE PT WAS ON AIRVO AT 45L AND 30% WITH O2 SATS >90% L/S COARSE T/O. RT AT THE BEDSIDE CHANGED THE AIRVO TO NC AT 5L WITH O2 SATS >90%. PER DR. DAWN KEEP O2 SATS>88%. SHE IS IN SR IN THE 80'S BP STABLE. 2+ EDEMA NOTED TO BLE. BT PRESENT AND HYPOACTIVE, ABD SOFT TO PALPATION. ESCAMILLA IS PATENT AND DRAINING DARK ANTHONY URINE TO GRAVTIY. PT IS AWAKE AND ALERT ORIENTED TO SELF ONLY, NOT FOLLOWING ANY DIRECTIONS AT THIS TIME. WILL CONTINUE TO MONITOR.
--- NOTE | 2022-10-05 16:14 | NUR ---
Spiritual care visit conducted. Patient is more alert today, Syd is bedside. Syd talks at length about the Bible. He says that he does not read and that Elizabeth would read the Bible to him every morning. He then told me many of the stories that he knows from the Bible. He tells me that [place] and that he tells his neighbors about the Bible but only a few want to listen. He asked me if I could pray for his "to be well and come home to [place], [place]." He shares about their 49 yrs together as a couple and how much he loves her. I listen empathically and provide prayer. Syd prays too and is tearful as he asks eDnis to help his Elizabeth. Syd voices much appreciation for my prayer and states that he can only stay a couple more days because he does not have "enough dollars" to stay with his .
--- NOTE | 2022-10-05 17:43 | NUR ---
SHIFT SUMMAY... NO ACUTE NEGATIVE CHANGES NOTED THIS SHIFT. PT'S VS HAVE BEEN STABLE. SHE CONTINUES TO BE ON THE NC AT 4L NC WITH O2 SATS >90%. PT HAD A LARGE LOOSE BROWN STOOLS THIS SHIFT AFTER GETTING A SUPPOSITORY. PT'S WAS AT THE BEDSIDE AND UPDATED ON THE PT'S CONDITON AND PLAN OF CARE. CALL LIGHT IN REACH WILL CONTINUE TO MONITOR UNTIL REPORT IS GIVEN TO ONCOMING RN.
--- NOTE | 2022-10-05 20:53 | NUR ---
ASSUMED CARE OF PATIENT AT 1900 PATIENT IS ALERT AND VERBAL AT TIMES. UNCOOPERATIVE WITH CARE AND WILL NOT FOLLOW COMMANDS. PURPOSEFUL MOVEMENT IN ALL EXTREMITIES. 02 SATS 97% ON 4L VIA NC, LS COARSE, CPT DONE AT START OF SHIFT BY RT. HR SR 80s, BP STABLE. ESCAMILLA PATENT AND DRAINING TO GRAVITY. PATIENT REPOSITIONED. SEE SHIFT ASSESSMENT FOR MORE INFORMATION. IGNITION RISK AND USE OF OXYGEN DISCUSSED WITH PATIENT. UNRECEPTIVE AT THIS TIME. NOTHING IN ROOM OF CONCERN.
--- NOTE | 2022-10-05 23:23 | NUR ---
REPORT TO ANNA MARTI, PATIENT TO PCU 18 AT [id number]
[2022-10-06 05:24] VITALS: BP 137/69
[2022-10-06 05:59] LABS: BASOPHILS ABSOLUTE AUTO 0.02 K/mm3 (0.00-0.23); BASOPHILS PERCENT AUTO 0 % (0-2); EOSINOPHILS ABSOLUTE AUTO 0.02 K/mm3 (0.00-0.68); EOSINOPHILS PERCENT AUTO 0 % (0-6); Hematocrit 40.4 % (33.0-51.0); Hemoglobin 12.9 g/dL (11.5-16.0); IMMATURE GRAN ABSOLUTE AUTO 0.06 K/mm3 (0.00-0.10); IMMATURE GRAN PERCENT AUTO 1 % (0-1); LYMPHOCYTES PERCENT AUTO 17 % (21-46); MONOCYTES PERCENT AUTO 8 % (4-13); Mean Corpuscular HGB 28.1 pg (26.0-34.0); Mean Corpuscular HGB Conc 31.9 g/dL (31.5-36.5); Mean Corpuscular Volume 88 fL (80-100); Mean Platelet Volume 10.1 fL (9.1-12.4); NEUTROPHILS ABSOLUTE AUTO 3.82 K/mm3 (1.96-9.15); NEUTROPHILS PERCENT AUTO 73 % (41-73); Platelet Count 207 K/mm3 (150-400); RDW Coefficient Variation 15.9 % (11.7-14.2); RDW Standard Deviation 50.1 fL (35.1-46.3); Red Blood Cell Count 4.59 M/mm3 (3.80-5.20); White Blood Cell Count 5.22 K/mm3 (4.00-11.30)
--- NOTE | 2022-10-06 06:07 | NUR ---
SHIFT SUMMARY ASSUMED CARE OF PT AT 2320. PT IS ALERT BUT WILL NOT ANSWER QUESTIONS. LUNG SOUNDS COARSE. PT HAS A PURWICK. PT HAS EXTENSIVE BRUISING T/O BODY. PT TURNED Q2. PT WAS ON 4L NC IN MOUTH BUT WAS SWITCHED TO 5L WHILE SLEEPING IN NOSE. NO ACUTE EVENTS. PT EDUCATED ABOUT HOSPITAL SMOKING POLICY AND FIRE SAFETY.
[2022-10-06 06:54] LABS: Albumin, Blood 2.4 g/dL (3.4-5.0); Albumin/Globulin Ratio 0.5 (0.8-1.8); Bilirubin, Direct 0.6 mg/dL (0.0-0.3); Bilirubin, Indirect 0.8 mg/dL (0.1-0.7); Bilirubin, Total 1.4 mg/dL (0.1-1.0); Bun/Creatinine Ratio 54.8 (12.0-20.0); Calcium, Blood 9.5 mg/dL (8.5-10.1); Creatinine, Blood 0.37 mg/dL (0.40-1.00); Globulin, Blood 4.9 g/dL (2.2-4.0); Phosphorus, Blood 3.2 mg/dL (2.5-4.9); Potassium, Blood 3.3 mmol/L (3.5-5.5); Total Protein, Blood 7.3 g/dL (6.4-8.2)
[2022-10-06 08:23] VITALS: BP 131/72
--- NOTE | 2022-10-06 15:15 | NUR ---
REPORT TO ANTHONY MARTI ON MEDICAL FLOOR. PT TRANSPORTED TO MEDICAL FLOOR VIA GURNEY WITH BELONGINGS, SPOUSE WITH PT. PT HAS BEEN REPOSITIONED Q2 HOURS T/O THE DAY AND ROM OF ALL 4 EXTREMETIES Q2 HOURS. PT MAKES EYE CONTACT WITH STAFF BUT DOES NOT SPEAK WITH STAFF. VSS. NEW POWERGLIDE PLACED TODAY. NEW PUREWICK PLACED. SCANT URINE OUTPUT TODAY. DR VALLE CONSULTED ABOUT STARTING IV NUTRITION, NO ORDERS AT THIS TIME FOR IV NUTRITION.
[2022-10-06 15:37] VITALS: BP 136/65
--- NOTE | 2022-10-06 16:17 | NUR ---
THIS RN CONTACTED DR. TORI BRAVO NUTRITION ATTEMPTED TO CALL PROCESS IMPROVEMENT CONSULTANT, NO ANSWER. ATTEMPTED TO CALL ST-PT C/O OF HUNGER/THIRST. PLAN TO INITIATE FLUIDS AND SEE SPEECH TOMORROW
--- NOTE | 2022-10-06 18:09 | NUR ---
SHIFT SUMMARY PT A&OX2-3 MOOD UP AND DOWN. PT APPEARS TO BE WITHDRAWN-IS VERBALLY RESPONDING TO THIS RN AND FAMILY AT BEDSIDE. PT VERY SLOW TO RESPOND. PT VERBALIZING SHE IS HUNGRY AND THIRSTY, POINTING AT FAMILY MEMBERS DRINKS SAYING "GIVE ME"-SWABS PROVIDED AND PLAN TO WORK W/ SPEECH THERAPY IN THE MORNING. FLUIDS RUNNING AT 75 ML/HR. VSS. CALL LIGHT W/IN REACH. PUREWICK IN PLACE.
[2022-10-06 19:47] VITALS: BP 143/66
--- NOTE | 2022-10-06 21:54 | NUR ---
PATIENT BLADDER SCAN 819 mL. HOSPITALIST MIRTA ENTRY LEVEL ACCOUNT MANAGER ORDERED URINE CATHETER.
--- NOTE | 2022-10-06 22:29 | NUR ---
URINE CATHETER PLACED AND 1,000 mLS OUT AND 100 mL OUT FROM PUREWICK PRIOR TO ESCAMILLA PLACEMENT. URINE SAMPLE SENT TO LAB. TM.
--- NOTE | 2022-10-06 22:31 | NUR ---
PT bladder scan realed approximately 800 ml PT reports discomfort and pain inability to void effectively, provider notified telephonic per nurse ordered lay catheter placed. PT was thoroughly cleaned vaginal area is ariel swollen with skin slough to labia wall and canal washed with soap and water then iodine after confirming no allergies. 16 faroese was placed without issues PT immediately voided 1200 ml and reported relief. nurses notified.
[2022-10-06 22:33] LABS: Source, Urine Foley catheter
[2022-10-06 22:47] LABS: Bilirubin, Urine Neg (Neg); Blood, Urine Neg (Neg); Glucose Qualitative, Urine Neg (Neg); Ketones, Urine 3+ (Neg); Leukocyte Esterase, Urine Neg (Neg); Nitrite, Urine Neg (Neg); Protein, Urine Neg (Neg); Specific Gravity, Urine 1.015 (1.003-1.022); Urobilinogen, Urine 2+ (Normal); pH, Urine 6.5 (5.0-8.0)
[2022-10-06 22:48] LABS: Appearance, Urine Clear (Clear); Color, Urine Yellow (P-Yellow)
--- NOTE | 2022-10-07 04:06 | NUR ---
SHIFT SUMMARY PATIENT AXOX 1-2 AND BEDREST WITH ONE TO TWO WORD ANSWERS. WILL MAKE EYE CONTACT. URINARY RETENTION WITH BLADDER SCAN @ 810 mL AND URINARY CATHETER PLACED PER ORDER BY HOSPITALIST MIRTA PATHAK. NPO AND POWERGLIDE RAMU REMAINS INTACT. D5 1/2 NS INFUSING AT 75 mL/HR. CBG Q6 CHECKS 131 AND 149. ON 5L O2 NC. NO S/X OF PAIN, SOB, AND N/V. VSS/AFEBRILE. SLEPT MOST OF THE SHIFT. CALL LIGHT IN REACH. BED IN LOWEST POSITION. WILL CONTINUE TO MONITOR UNTIL DAY SHIFT NURSE ASSUMES CARE.
[2022-10-07 04:53] VITALS: BP 142/76
[2022-10-07 05:17] LABS: BASOPHILS ABSOLUTE AUTO 0.01 K/mm3 (0.00-0.23); BASOPHILS PERCENT AUTO 0 % (0-2); EOSINOPHILS ABSOLUTE AUTO 0.02 K/mm3 (0.00-0.68); EOSINOPHILS PERCENT AUTO 0 % (0-6); Hematocrit 42.1 % (33.0-51.0); Hemoglobin 13.3 g/dL (11.5-16.0); IMMATURE GRAN ABSOLUTE AUTO 0.04 K/mm3 (0.00-0.10); IMMATURE GRAN PERCENT AUTO 1 % (0-1); LYMPHOCYTES ABSOLUTE AUTO 0.84 K/mm3 (0.84-5.20); LYMPHOCYTES PERCENT AUTO 17 % (21-46); MONOCYTES ABSOLUTE AUTO 0.39 K/mm3 (0.16-1.47); MONOCYTES PERCENT AUTO 8 % (4-13); Mean Corpuscular HGB 28.2 pg (26.0-34.0); Mean Corpuscular HGB Conc 31.6 g/dL (31.5-36.5); Mean Corpuscular Volume 89 fL (80-100); Mean Platelet Volume 10.4 fL (9.1-12.4); NEUTROPHILS ABSOLUTE AUTO 3.62 K/mm3 (1.96-9.15); NEUTROPHILS PERCENT AUTO 74 % (41-73); Platelet Count 188 K/mm3 (150-400); RDW Coefficient Variation 15.7 % (11.7-14.2); RDW Standard Deviation 51.4 fL (35.1-46.3); Red Blood Cell Count 4.71 M/mm3 (3.80-5.20); White Blood Cell Count 4.92 K/mm3 (4.00-11.30)
[2022-10-07 05:29] LABS: Albumin, Blood 2.3 g/dL (3.4-5.0); Albumin/Globulin Ratio 0.5 (0.8-1.8); Bilirubin, Total 1.5 mg/dL (0.1-1.0); Bun/Creatinine Ratio 57.6 (12.0-20.0); Calcium, Blood 8.8 mg/dL (8.5-10.1); Creatinine, Blood 0.33 mg/dL (0.40-1.00); Globulin, Blood 4.9 g/dL (2.2-4.0); Potassium, Blood 3.6 mmol/L (3.5-5.5); Total Protein, Blood 7.2 g/dL (6.4-8.2)
[2022-10-07 07:57] VITALS: BP 147/69
--- NOTE | 2022-10-07 15:40 | NUR ---
SHIFT SUMMARY PT A&OX1-2 - ABLE TO USE 3-4 WORD SENTENCES TODAY, FAMILY AT BEDSIDE. VSS/5LNC. NPO (SWALLOW EVAL W/O SUCCESS TODAY), ORAL CARE PROVIDED. POWERGLIDE LUE, IVF @ 75 MLS/HR. ESCAMILLA PATENT & DRAINING ANTHONY URINE, STAT LOCK ON, OFF FLOOR. CBGS HSS PER EMAR, PHYSICAL THERAPY WORKED WITH PT, 2 PP MAX ASSIST TO REPOSITION. WILL REPORT TO ONCOMING NOC RN.
[2022-10-07 16:53] VITALS: BP 141/67
[2022-10-08 04:06] VITALS: BP 132/72
--- NOTE | 2022-10-08 04:25 | NUR ---
SHIFT SUMMARY PATIENT HAD NO ACUTE CHANGES. AXOX 2, BEDREST, AND NPO. ONLY VERBAL ON REPOSITIONING WITH 1-2 WORDS. POWERGLIDE AND PIV REMAIN INTACT. D5 1/2 NS INFUSING AT 75 mL/HR. FAMILY PRESENT AT SHIFT CHANGE. ON 6L O2 NC. ESCAMILLA PRESENT AND DRAINING TO GRAVITY. CBG Q6 CHECKS 162 AND 165. TWO PERSON FOR REPOSITIONING. NO S/SX OF PAIN, SOB, AND N/V. VSS/AFEBRILE. STAYED UP MOST OF THE SHIFT. CALL LIGHT IN REACH. BED IN LOWEST POSITION. WILL CONTINUE TO MONITOR UNTIL DAY SHIFT NURSE ASSUMES CARE.
[2022-10-08 08:01] VITALS: BP 126/65
--- NOTE | 2022-10-08 14:43 | NUR ---
Met with pt, and son today. Pt's 's primary language is Salvadorean. He does speak some Hebrew, but his son states not enough to grasp "medical terms". The pt's Syd also indicates he is unable to hear well using the telephone, and requests an in-person translator and interpreter tomorrow, along with the physician so he can receive an update. Spoke to 3rd floor operations clerk Josie, then Raul SolanoRN/Nursing Turntable Operator. He states the service is available on week, and we can arrange a meeting tomorrow with the translator and interpreter and hospitalist. Pt remains bed-bound, and aphasic. She is extubated and on the medical floor, but so far unable to work with ST due to lack of ability to follow commands. Pt's son tells me he and pt's are expecting a full recovery and nothing less.
[2022-10-08 16:43] VITALS: BP 132/64
--- NOTE | 2022-10-08 18:31 | NUR ---
SHIFT SUMMARY PT HAS MAINTAINED O2 SATURATIONS ON 6L O2 VIA NC. NO SIGNIFICANT CHANGES THIS SHIFT. PT RESPONDS TO HER NAME AND OCCASIONALLY ANSWERS QUESTIONS WITH 1-2 WORD ANSWERS. SHE OCCASIONALLY FOLLOWS COMMANDS BUT APPEARS [place] OR TO HAVE DIFFICUTLY UNDERSTANDING COMMANDS. PT HAS BEEN TURNED Q2 HOURS WITH MAX ASSIST. PT MOVED TO A LIFT ROOM FOR IMPROVED MOBILITY. ORAL CARE HAS BEEN ATTEMPTED Q4 HOURS BUT PT ALLOWS MINIMAL TO NO ORAL CARE EVEN WHEN EDUCATION IS PROVIDED. WILL MONITOR UNTIL REPORT TO EMIL RN.
--- NOTE | 2022-10-08 19:25 | NUR ---
PATIENT RESTING IN BED. ALERT TO SELF AND ONLY ABLE TO ANSWER WITH 1-2 WORDS AT TIMES. NON-VERBAL AT SHIFT CHANGE. ABLE TO FOLLOW MOVEMENT WITH HER EYES AND TURN HER HEAD. ON 6L ON NC STATING 95%. CLINIMIX INFUSING @ 75 mL/HR. WCTM.
[2022-10-08 20:12] VITALS: BP 141/72
[2022-10-09 02:33] VITALS: BP 136/72
--- NOTE | 2022-10-09 04:23 | NUR ---
SHIFT SUMMARY PATIENT HAD NO ACUTE CHANGES. ALERT TO SELF AND MOSTLY NON-VERBAL WITH 1-2 WORD ANSWERS AT TIMES. BEDREST AND CBG 181. POWERGLIDE AND PIV INTACT. CLINIMIX INFUSING @ 75 mL/HR. ESCAMILLA PATENT AND DRAINING TO GRAVITY. SELF CARE SUCTIONING AND ORAL CARE PROVIDED. VSS/AFEBRILE. SO S/SX OF PAIN, SOB, AND N/V. ON 6L O2 NC. CALL LIGHT IN REACH. BED IN LOWEST POSITION. WILL CONTINUE TO MONITOR UNTIL DAY SHIFT NURSE ASSUMES CARE.
[2022-10-09 05:09] LABS: BASOPHILS ABSOLUTE AUTO 0.01 K/mm3 (0.00-0.23); BASOPHILS PERCENT AUTO 0 % (0-2); EOSINOPHILS ABSOLUTE AUTO 0.01 K/mm3 (0.00-0.68); EOSINOPHILS PERCENT AUTO 0 % (0-6); Hematocrit 40.9 % (33.0-51.0); Hemoglobin 13.6 g/dL (11.5-16.0); IMMATURE GRAN ABSOLUTE AUTO 0.03 K/mm3 (0.00-0.10); IMMATURE GRAN PERCENT AUTO 1 % (0-1); LYMPHOCYTES ABSOLUTE AUTO 1.26 K/mm3 (0.84-5.20); LYMPHOCYTES PERCENT AUTO 27 % (21-46); MONOCYTES ABSOLUTE AUTO 0.37 K/mm3 (0.16-1.47); MONOCYTES PERCENT AUTO 8 % (4-13); Mean Corpuscular HGB 28.9 pg (26.0-34.0); Mean Corpuscular HGB Conc 33.3 g/dL (31.5-36.5); Mean Corpuscular Volume 87 fL (80-100); Mean Platelet Volume 9.8 fL (9.1-12.4); NEUTROPHILS ABSOLUTE AUTO 2.98 K/mm3 (1.96-9.15); NEUTROPHILS PERCENT AUTO 64 % (41-73); Platelet Count 179 K/mm3 (150-400); RDW Coefficient Variation 15.6 % (11.7-14.2); RDW Standard Deviation 49.4 fL (35.1-46.3); White Blood Cell Count 4.66 K/mm3 (4.00-11.30)
[2022-10-09 05:48] LABS: Bun/Creatinine Ratio 46.6 (12.0-20.0); Creatinine, Blood 0.39 mg/dL (0.40-1.00); Potassium, Blood 2.8 mmol/L (3.5-5.5)
[2022-10-09 08:04] VITALS: BP 141/62
[2022-10-09 15:59] VITALS: BP 138/67
--- NOTE | 2022-10-09 18:20 | NUR ---
SHIFT SUMMARY PT AOX1, BEDREST/LIFT. OVERALL NON VERBAL AT THIS TIME AND NPO DUE TO SWALLOW PRECAUTIONS. MEPALEX ON L ELBOW CHANGED THIS SHIFT. ATTEMPTED TO PLACE A MASK ON THE PT THIS AFTERNOON, DUE TO HER SATING 85-87 WITH HER NC ON. IT WAS DETERMINED SHE WAS A MOUTH BREATHER. ONCE THE MASK WAS PLACED, THE PT DID NOT TOELRATE IT WELL AND WAS CONSTANTLY ATTEMPTING TO REMOVE THE MASK. THE NC WAS PLACED IN HER MOUTH AND AN ORDER FOR A CONTINUOUS PULSE OX WAS PLACED. DR. VALLE WAS NOTIFED. PT HAS CLINIMIX INFUSING ALONG WITH POTASSIUM. PALLIATIVE CARE IS ON THE CASE, SPEAKING WITH THE FAMILY MULTIPLE TIMES TODAY. SON AND FATHER HAVE BEEN AT THE BS. PT IS A Q6 CBG. CALL LIGHT WITHIN REACH, BED IN THE LOWEST POSITION. PT AND FAMILY EDUCATION ABOUT IGNITION SOURCES AND RISK OF INJURY WHILE OXYGEN IS IN USE. FAMILY VERBALIZED UNDERSTANDING. WILL REPORT TO ONCOMING NURSE.
[2022-10-09 21:53] VITALS: BP 150/84
--- NOTE | 2022-10-09 22:52 | NUR ---
LATE NOTE. EARLY IN SHIFT, PT WAS PULLING OFF NC AND WOULD DESATURATE INTO LOW 80s ON ROOM AIR. CONTINUOUS PULSE OX IN PLACE. PT ALMOST EXCLUSIVELY NONVERBAL, DOES NOT RESPOND TO REDIRECTION OR EDUCATION. DISTRACTIONS/CONCEALING LINES INEFFECTIVE. DISCUSSED WITH SOFT TILE SETTER LAVERN MEDINA. CALLED SON SHERMAN TO NOTIFY OF ISSUE AND INFORM THAT NEXT STEP TO ENSURE O2 SUPPLEMENTATION AND MAINTAIN SATURATION WAS TO IMPLEMENT SOFT WRIST RESTRAINTS TO PREVENT PT FROM PULLING LINES. SON WAS OKAY OF THIS DECISION TO ENSURE SATURATION REMAINED ADEQUATE. CALLED HOSPITALIST FLY AND RECEIVED ORDER FOR SOFT WRIST RESTRAINTS. ORDER INPUT. PROCESS INTERVENTION COMPLETED, TO BE COMPLETED Q2. SATURATION IS REMAINING ABOVE 93% AT THIS TIME WITH AID OF O2 SUPPLEMENTATION. WILL CONTINUE TO MONITOR.
--- NOTE | 2022-10-10 04:53 | NUR ---
SHIFT SUMMARY. IMPLEMENTED SOFT WRIST RESTRAINTS EARLY IN SHIFT. SEE RELATED NOTES FOR DETAILS. SHIFT HAS SINCE BEEN MOSTLY UNREMARKABLE. PT CONTINUES TO SAT >95% ON SUPPLEMENTAL O2. PT REMAINS MOSTLY NONVERBAL BUT HAS RESPONDED TO VERBAL PROMPTING WITH FEW SCATTERED WORDS. REPLIED "OKAY" WHEN ASKED HOW SHE IS FEELING. ASKED TO "TAKE" TO WHICH I ASKED IF SHE MEANT HER MASK BUT SHE WAS UNABLE TO REPLY. HAS NOT SLEPT THROUGHOUT SHIFT BUT APPEARS TO BE RESTING COMFORTABLY, NO SIGNS OF PAIN OR DISTRESS. REPOSITIONED Q2 HOURS, TOLERATES WELL. DOES NOT USE CALL LIGHT. MEPILEXs REMAIN IN PLACE AND ARE C/D/I. BED LOCKED IN LOWEST POSITION.
[2022-10-10 05:01] VITALS: BP 152/81
[2022-10-10 05:08] LABS: BASOPHILS ABSOLUTE AUTO 0.01 K/mm3 (0.00-0.23); BASOPHILS PERCENT AUTO 0 % (0-2); EOSINOPHILS ABSOLUTE AUTO 0.01 K/mm3 (0.00-0.68); EOSINOPHILS PERCENT AUTO 0 % (0-6); Hematocrit 42.1 % (33.0-51.0); Hemoglobin 13.5 g/dL (11.5-16.0); IMMATURE GRAN ABSOLUTE AUTO 0.07 K/mm3 (0.00-0.10); IMMATURE GRAN PERCENT AUTO 2 % (0-1); LYMPHOCYTES ABSOLUTE AUTO 1.17 K/mm3 (0.84-5.20); LYMPHOCYTES PERCENT AUTO 25 % (21-46); MONOCYTES PERCENT AUTO 9 % (4-13); Mean Corpuscular HGB 27.9 pg (26.0-34.0); Mean Corpuscular HGB Conc 32.1 g/dL (31.5-36.5); Mean Corpuscular Volume 87 fL (80-100); Mean Platelet Volume 9.9 fL (9.1-12.4); NEUTROPHILS ABSOLUTE AUTO 2.94 K/mm3 (1.96-9.15); NEUTROPHILS PERCENT AUTO 64 % (41-73); Platelet Count 181 K/mm3 (150-400); RDW Coefficient Variation 15.8 % (11.7-14.2); RDW Standard Deviation 50.1 fL (35.1-46.3); Red Blood Cell Count 4.84 M/mm3 (3.80-5.20)
[2022-10-10 05:48] LABS: Calcium, Blood 8.6 mg/dL (8.5-10.1); Creatinine, Blood 0.36 mg/dL (0.40-1.00); Potassium, Blood 3.5 mmol/L (3.5-5.5)
[2022-10-10 07:48] VITALS: BP 158/93
--- NOTE | 2022-10-10 10:31 | NUR ---
With marketing services vice president assistance, was able to have an in depth conversation with pt's Syd whose primary language is Italian. The pt failed her speech evaluation again, and it is becoming apparent the pt is likely not improving enough to qualify for rehabilitation. Syd is now debating taking pt home with hospice. However, they live in [place] which is on the [facility] and hospice availability is limited there. Dr. Hall was present for part of the conversation with pt's son and , and he voiced concerns about possible Parkinson's due to pt's bilateral hand tremor and based on Syd's observations of pt's past behaviors. Alexandra, Molecular Biology Director is checking with hospice agencies for [place] to proactively check on their availability as they have been several weeks out in the past. Spoke to pt's CG Angelina with family's permission. She unfortunately had to find other work since pt has remained in the hospital. This complicates the home setting if they were to attempt to take her home. Palliative care will remain available to collaborate with care team, as well as provide support for pt and family.
--- NOTE | 2022-10-10 15:11 | NUR ---
Pt's has decided to take pt home with hospice. Pt has an advance directive in place that she filled out herself, and made it clear she would not want to be kept alive by feeding tube, and after seeing pt's inability to successfully drink water today, along with finding out the hospice agency can admit pt within 48 hours, pt's Syd opted to take her home. He states he will stop by in the morning to see her, then will return home to prepare the house for her return. MISAEL Morris is making arrangments with hospice, equipment, and for pt's transport home. IV fluids and clinimix d/c'd, and pt's code changed to DNR with family permission.
[2022-10-10 15:19] VITALS: BP 128/85
--- NOTE | 2022-10-10 16:13 | NUR ---
Spiritual care visit conducted. I spoke with Palliative care RN Constanza and patient's RN Delon today and learned about the upocoming transition over to going home on hospice. Patient is lying in bed and answers in one word answers but says "no," when asked if she was holding up ok and "home," when asked what she needs. She nods and says, "yes," when asked if she would like a prayer said for her. I gladly provide prayer to which patient says "Amen," when I concluded. Patient quickly returns to a sleep like state. I will continue to remain available to patient and family. I hope to catch Syd in the morning when he comes to visit.
--- NOTE | 2022-10-10 18:39 | NUR ---
SHIFT SUMMARY PATIENT STIRS TO VERBAL STIMULI AND TOUCH. MOSTLY NON-VERBAL, A FEW TIMES SAID "NO" DURING CARE. SLEEPS MOSTLY. FULL CARE PATIENT. O2 REMAINS AT 5L EITHER BY MASK OR NC. DC'D RESTRAINTS AT 0900 WHEN SPOUSE ARRIVED. FAILED SWALLOW EVAL WITH SPEECH THERAPY WHILE FAMILY AND PALLIATIVE CARE WERE PRESENT IN ROOM. PATIENT RESTED CALMLY THROUGHOUT DAY. PULLED O2 OFF A COUPLE TIMES BUT TOLERATED MOSTLY. CLINIMIX CONTINUES TO RUN. Q2 HR TURNS. ATTENDS CHANGED PRN. ESCAMILLA PATENT AND DRAINING. SMALL BMS IN ATTENDS. PALLIATIVE CARE MADE GOOD PROGRESS WITH CARE PLANNING WITH FMAILY. PLAN IS FOR PATIENT TO GO HOME ON HOSPICE Sunday. CODE STATUS CHANGED TO DNR. ANDI IS TO REMAIN AT THIS TIME. NOT TO PLACE FURTHER IV'S. LENS CLEANER JUAN SANTOS WOULD LIKE TO BE PRESENT Sunday WHEN SPOUSE ANG VISITS-RN TO CALL JUAN SANTOS.
[2022-10-10 19:21] VITALS: BP 140/83
--- NOTE | 2022-10-11 04:02 | NUR ---
SHIFT SUMMARY. SHIFT HAS BEEN LARGELY UNREMARKABLE. PT REMAINS AOX1, ALMOST ENTIRELY NONVERBAL, PROFOUNDLY CONFUSED. SLEEPING THROUGH MUCH OF SHIFT TONIGHT. HAS NOT PULLED AT O2 THIS SHIFT AND HAS BEEN SATTING WELL ON SUPPLEMENTAL O2. CONTINUOUS PULSE OX IN PLACE. APPEARS COMFORTABLE, NO SIGNS OF DISTRESS OR DISCOMFORT. Q2 TURNS. 2100 AND 0000 MEDICATIONS ADMINISTERED WITHOUT DIFFICULTY. 1 BM LATE LAST NIGHT. BED LOCKED IN LOWEST POSITION. WILL CONTINUE TO MONITOR.
[2022-10-11 04:18] VITALS: BP 153/95
--- NOTE | 2022-10-11 10:52 | NUR ---
PATIENT REFUSING CARE, WAS PUSHING AND HITTING AT ME WHILE REPOSITIONING PATIENT AND WHILE PROVIDING CATHETER CARE. BED BATH OFFERED, WILL TRY AGAIN LATER, TURNED PATIENT AGAIN SO NURSE COULD GIVE SUPOSITORY. CALL LIGHT IN REACH, HOB ELEVATED, HEELS FLOATED OFF BED.
--- NOTE | 2022-10-11 18:36 | NUR ---
SHIFT SUMMARY- PT IS OCCASSIONALLY ALERT AND ANSWERS YES NO QUESTIONS WHEN SHE IS. SHE WAS SWITCHED TO COMFORT CARE TODAY. PT HAS BEEN TURNED Q2, SHE RECIEVED A FULL BED BATH TODAY. ORDER FOR NO IV ACCESS WAS PLACED TODAY. SPOUSE AND SON HAVE BEEN IN TO SEE HER FOR THE BETTER PART OF THE DAY. PT CURRENTLY IN BED SLEEPING, APPEARS COMFORTABLE CURRENTLY, NO S&S OF DISTRESS NOTED. HIGH FLOW NC AT 5L IN PLACE. WILL PASS ON TO NIGHT RN IN BEDSIDE REPORT.
--- NOTE | 2022-10-12 01:24 | NUR ---
DISCUSSION WITH TAMERA SHELTON RN REGARDING HOLDING 0000 TYLENOL. PT BECOMES DESATURATED, APPEARS UNCOMFORTABLE FOR TURNING AND ADMINISTRATION. PRN ROXANOL IS AVAILABLE FOR PAIN MANAGEMENT AND AIR HUNGER. AT ABOUT 0030, ASKED PT IF SHE WAS IN PAIN TO WHICH SHE REPLIED "NO" AND ASKED HOW SHE WAS FEELING. PT DID NOT RESPOND MORE THAN MUMBLES BUT AFTER MORE PROMPTING SHOOK HER HEAD "YES" WHEN ASKED IF SHE IS FEELING OKAY. WILL HOLD 0000 TYLENOL TO AVOID UNNECCESARY PAIN/DISCOMFORT. WILL USE PRN ROXANOL FOR PAIN MANAGEMENT AND AIR HUNGER. WILL CONTINUE TO MONITOR .
--- NOTE | 2022-10-12 03:53 | NUR ---
SHIFT SUMMARY. PT WAS TRANSITIONED TO COMFORT CARE ON DAY SHIFT. COMFORT CARE ASSESSMENTS COMPLETED Q4 SCHEDULED. PT WAS ALMOST EXCLUSIVELY NONVERBAL AND DID NOT RESPOND TO QUESITONS/COMMANDS FOR FIST HALF OF SHIFT, HAS BEEN TYPICAL EVERY NIGHT SINCE SUNDAY. THE LATTER HALF OF THE SHIFT, PT HAS BEEN MILDLY MORE LUCID AND IS MUCH BETTER ABLE TO ANSWER YES/NO QUESTIONS. PT WAS TOLERATING O2 WELL THROUGH MOST OF THE SHIFT UNTIL EARLY THIS MORNING WHEN I WALKED IN TO FIND HER IN A STATE OF DISTRESS WITHOUT O2 ON. OXIMETER REVEALED SATS OF 74%, EXPLAINED NEED FOR O2 AND ASKED FOR PERMISSION TO PLACE. PT AGREED YES AND QUICKLY RESATURATED UP TO 90s AFTER ~20 SECONDS. PT WAS VISIBLY MUCH MORE COMFORTABLE. ASKED IF SHE WAS OKAY AND IF SHE WAS HAVING ANY PAIN TO WHICH SHE ANSWERED YES/NO RESPECTIVELY. SINCE THAT TIME, PT HAS REMAINED RESPONSIVE TO YES/NO QUESTIONS AND HAS CONTINUED TO TOLERATE NC. CONTINUES TO REPORT FEELING COMFORTABLE AND DENIES ANY PAIN. HELD 0000 TYLENOL, SEE RELATED NOTE FOR DETAILS. BED LOCKED IN LOWEST POSITION. WILL CONTINUE TO MONITOR.
[2022-10-12] MEDS ORDERED: MORP20L SL (07:56)
[2022-10-12] MEDS ORDERED: ALBU90OI INH (07:57)
[2022-10-12] MEDS ORDERED: PHENERGAN25 MG PR (07:57)
--- NOTE | 2022-10-12 10:56 | NUR ---
DISCHARGE NOTE- PT DISCHARGED HOME ON HOSPICE. PT STATED SHE HAD PAIN IN HER BELLY MEDICATED WITH 10MG ROOXANOL, PT DECLINED TYLENOL SUPPOSITORY THAT WAS SCHEDULED THIS MORNING. PT WAS TAKEN VIA GURNEY TRANSPORT, HOME WWHERE SHE WILL BE ADMITTED TO HOSPICE. PT FAMILY NOT PRESENT AT THE TIME OF DISCHARGE. PT UNABLE TO SIGN DISCHARGE PAPERS. NO S&S OF DISTRESS NOTED AT THE TIME OF DISCHARGE.
== END 2022-10-12 10:32 | disposition hospice, home (50) | DRG 207 ==
LOC: MEDS 00:05 → PCU 00:05 → ICUE 00:05 → PCU 14:42 → ICUE 09-17 14:56 → PCU 10-05 23:13 → MEDS 10-06 15:48
PROVIDERS: Family Medicine; Internal Medicine; Internal Medicine Critical Care Medicine; Nurse Practitioner Acute Care; ADMIT Student in an Organized Health Care Education/Training Program
PROC: 3E033XZ Introduction of Vasopressor into Peripheral Vein, Percutaneous Approach (ICD-10-PCS; 2022-09-16)
PROC: XW033E5 Introduction of Remdesivir Anti-infective into Peripheral Vein, Percutaneous Approach, New Technology Group 5 (ICD-10-PCS; 2022-09-16)
PROC: 3E0333Z Introduction of Anti-inflammatory into Peripheral Vein, Percutaneous Approach (ICD-10-PCS; 2022-09-16)
PROC: 8E0ZXY6 Isolation (ICD-10-PCS; 2022-09-16)
PROC: 5A09457 Assistance with Respiratory Ventilation, 24-96 Consecutive Hours, Continuous Positive Airway Pressure (ICD-10-PCS; 2022-09-16)
PROC: 5A1955Z Respiratory Ventilation, Greater than 96 Consecutive Hours (ICD-10-PCS; principal; 2022-09-17)
PROC: 0BH17EZ Insertion of Endotracheal Airway into Trachea, Via Natural or Artificial Opening (ICD-10-PCS; 2022-09-17)
PROC: 02HV33Z Insertion of Infusion Device into Superior Vena Cava, Percutaneous Approach (ICD-10-PCS; 2022-09-17)
PROC: 4A133R1 Monitoring of Arterial Saturation, Peripheral, Percutaneous Approach (ICD-10-PCS; 2022-09-17)
PROC: 0DH67UZ Insertion of Feeding Device into Stomach, Via Natural or Artificial Opening (ICD-10-PCS; 2022-09-20)
PROC: 5A0935A Assistance with Respiratory Ventilation, Less than 24 Consecutive Hours, High Flow/Velocity Cannula (ICD-10-PCS; 2022-10-04)
DX: U07.1 COVID-19 (principal); G92.8 Other toxic encephalopathy; J12.82 Pneumonia due to coronavirus disease 2019; J96.01 Acute respiratory failure with hypoxia; J15.9 Unspecified bacterial pneumonia; J96.22 Acute and chronic respiratory failure with hypercapnia; I50.33 Acute on chronic diastolic (congestive) heart failure; N17.9 Acute kidney failure, unspecified; I13.0 Hypertensive heart and chronic kidney disease with heart failure and stage 1 through stage 4 chronic kidney disease, or unspecified chronic kidney disease; Z68.43 Body mass index [BMI] 50.0-59.9, adult; J44.0 Chronic obstructive pulmonary disease with (acute) lower respiratory infection; E87.0 Hyperosmolality and hypernatremia; N39.0 Urinary tract infection, site not specified; Z51.5 Encounter for palliative care; R13.10 Dysphagia, unspecified; E11.22 Type 2 diabetes mellitus with diabetic chronic kidney disease; E03.9 Hypothyroidism, unspecified; R94.5 Abnormal results of liver function studies; E83.39 Other disorders of phosphorus metabolism; E88.09 Other disorders of plasma-protein metabolism, not elsewhere classified; B96.20 Unspecified Escherichia coli [E. coli] as the cause of diseases classified elsewhere; B95.2 Enterococcus as the cause of diseases classified elsewhere; B96.89 Other specified bacterial agents as the cause of diseases classified elsewhere; D69.6 Thrombocytopenia, unspecified; K21.9 Gastro-esophageal reflux disease without esophagitis; B37.2 Candidiasis of skin and nail; N18.30 Chronic kidney disease, stage 3 unspecified; E66.01 Morbid (severe) obesity due to excess calories; G20 Parkinson's disease; Z28.310 Unvaccinated for COVID-19; Z88.2 Allergy status to sulfonamides; Z88.5 Allergy status to narcotic agent; Z79.899 Other long term (current) drug therapy; Z79.82 Long term (current) use of aspirin; Z88.0 Allergy status to penicillin; Z79.2 Long term (current) use of antibiotics; Z79.52 Long term (current) use of systemic steroids; Z79.01 Long term (current) use of anticoagulants; Z79.4 Long term (current) use of insulin; Z79.811 Long term (current) use of aromatase inhibitors; Z78.1 Physical restraint status
CPT/HCPCS: 31500; 31720; 36415; 36556; 36600; 70450; 71045; 71260; 80048; 80053; 80069; 80202; 81001; 81003; 82248; 82330; 82607; 82746; 82803; 82947; 83735; 83880; 84100; 84132; 84439; 84443; 84484; 85025; 85027; 87070; 87077; 87086; 87106; 87186; 87205; 92526; 92610; 93005; 93010; 93306; 93308; 93321; 94002; 94003; 94640; 94660; 94664; 94667; 94668; 94760; 94762; 97110; 97110-CQ; 97162; 97530; A9270; C1751; C9113; J0248; J0360; J0692; J1100; J1450; J1644; J1815; J1940; J2060; J2250; J2370; J2704; J3010; J3370; J3411; J3475; J3480; J7040; J7042; J7050; J7060; Q9967